=== PATIENT | female | born 1955 | race African-American/Black ===

== ENCOUNTER 2017-07-22 13:22 | Emergency (ER) | payer OTHER ==
[2017-07-22 15:39] LABS: #Eosinphils 0.2 thou/uL (0.0-0.7); #Lymphocytes 3.3 thou/uL (1.20-3.40); #Monocytes 0.6 thou/uL (0.11-0.59); #Neutrophils 3.5 thou/uL (1.40-6.50); %Basophils 0.3 % (0.0-1.0); %Eosinophils 2.7 % (0.0-10.0); %Lymphocytes 43.3 % (21.0-51.0); %Monocytes 8.1 % (0.0-10.0); %Neutrophils 45.6 % (42.0-75.0); Hemoglobin 12.7 g/dL (12.0-16.0); Mean Corpuscular HGB CONC 33.4 g/dL (32.0-36.0); Mean Corpuscular Hemoglobin 29.7 pg (27.0-31.0); Platelet Count 250 thou/uL (130-400); RBC Distribution Width 11.6 % (11.5-14.5); Red Blood Cell (RBC) Count 4.28 mill/uL (4.20-5.40); White Blood Cell (WBC) Count 7.6 thou/uL (4.8-10.8)
[2017-07-22 15:50] LABS: Prothrombin Time 13.7 SEC (12.0-14.7)
[2017-07-22 15:51] LABS: PTT 28.8 SEC (22.9-36.1)
--- NOTE | 2017-07-22 15:52 | CT ---
CT OF THE BRAIN WITHOUT CONTRAST: Date: 07/22/17 COMPARISON: 02/05/11. HISTORY: Left-sided weakness and inability to bear weight on the left leg since this morning. TECHNIQUE: Multiple contiguous axial images were obtained in a CT of the brain without contrast. FINDINGS: There is encephalomalacia in the right MCA distribution. There is a central area of volume loss encep halomalacia. In the white matter in the right MCA distribution, there is increased volume loss enceph alomalacia when compared to the prior examination. This may have represented evolution of the previou s MCA distribution infarction. An acute infarction in the right MCA distribution cannot be excluded g iven the significant encephalomalacia and hypodensity in this region. There is no evidence of hydroce phalus, intracranial hemorrhage, or extra-axial fluid collection. The calvarium and overlying soft tissues are unremarkable. Visualized paranasal sinuses and mastoid a ir cells are well aerated. IMPRESSION: The patient has a remote right MCA distribution infarction. An acute on chronic infarction in this lo cation cannot be entirely excluded given the significant encephalomalacia and hypodensity in this reg ion. POS: NATALIE
[2017-07-22 15:58] LABS: Digoxin Less than 0.15 ng/mL (0.8-2.0)
[2017-07-22 16:04] LABS: ALT (SGPT) 12 U/L (8-55); AST (SGOT) 21 U/L (5-34); Albumin 4.1 g/dL (3.4-4.8); Alkaline Phosphatase 106 U/L (40-150); Anion Gap 11 mmol/L (10-20); BUN (Urea Nitrogen) 7 mg/dL (9.8-20.1); Bilirubin, Total 0.5 mg/dL (0.2-1.2); CKMB 1.9 ng/mL (0-6.6); Calc. Creatinine Clearance 0 mL/min (70-130); Calcium 9.7 mg/dL (7.8-10.44); Carbon Dioxide 25 mmol/L (23-31); Chloride 106 mmol/L (98-107); Estimated GFR-MDRD 89; Globulin 3.2 g/dL (2.4-3.5); Glucose 82 mg/dL (80-115); Potassium 4.9 mmol/L (3.5-5.1); Protein, Total 7.3 g/dL (6.0-8.3); Sodium 137 mmol/L (136-145); Troponin I 0.017 ng/mL (< 0.028)
--- NOTE | 2017-07-22 16:36 | RAD ---
PORTABLE AP CHEST RADIOGRAPH: Date: 07-22-17 History: Left sided weakness and inability to bear weight on left lower extremity for past 2-3 days. Comparison: 07-15-10 FINDINGS: Post-surgical changes related to median sternotomy and cardiac valve replacement are again noted. Car diac silhouette is magnified by projection. Pulmonary vasculature is within normal limits. The lungs are clear. Degenerative change are seen in the spine. There has been no interval change from prior st udy. IMPRESSION: No acute cardiopulmonary process. POS: NATALIE
[2017-07-22] MEDS ORDERED: Enoxaparin Sodium 60 MG/0.6 ML SYRINGE ONE (18:19)
== END 2017-07-22 18:35 | disposition home or self-care (01) ==
LOC: ERS 13:22
DX: R53.1 Weakness (principal); J45.909 Unspecified asthma, uncomplicated; I10 Essential (primary) hypertension; E78.5 Hyperlipidemia, unspecified; Z87.891 Personal history of nicotine dependence; Z77.22 Contact with and (suspected) exposure to environmental tobacco smoke (acute) (chronic); Z79.01 Long term (current) use of anticoagulants; Z79.899 Other long term (current) drug therapy; Z86.73 Personal history of transient ischemic attack (TIA), and cerebral infarction without residual deficits
CPT/HCPCS: 70450; 71045; 80053; 80162; 80185; 82553; 84484; 85025; 85610; 85730; 93005; 96372; J1650

== ENCOUNTER 2017-09-04 22:37 | Inpatient (IN) | payer OTHER ==
[2017-09-05] MEDS ORDERED: Aspirin 325 MG TAB ONE (00:33)
[2017-09-05 02:35] VITALS: BMI 26.7
[2017-09-05] MEDS ORDERED: Acetaminophen 325 MG TAB PO SCH (02:45)
[2017-09-05] MEDS ORDERED: Milk Of Magnesia 30 ML UDCUP PO PRN (08:56)
[2017-09-05] MEDS ORDERED: Sodium Chloride 0.65% Nasal 44 ML BOT EA NARE PRN (08:56)
[2017-09-05] MEDS ORDERED: Artificial Tears 18 DROP/0.9 ML EA EYE PRN (08:56)
[2017-09-05] MEDS ORDERED: hydrALAZINE 20 MG/ML VIAL SLOW IVP PRN (08:56)
[2017-09-05] MEDS ORDERED: Ondansetron HCl/PF 4 MG/2 ML Vial IVP PRN (08:56)
[2017-09-05] MEDS ORDERED: Loperamide HCl 2 MG CAP PO PRN (08:56)
[2017-09-05] MEDS ORDERED: Diabetic Tussin 200 MG/10 ML UDCUP PO PRN (08:56)
[2017-09-05] MEDS ORDERED: Nitroglycerin 0.4 MG TAB (25 Tab Bottle) SL PRN (08:56)
[2017-09-05] MEDS ORDERED: Chloraseptic Spray 180 ml Bottle PO PRN (08:56)
[2017-09-05] MEDS ORDERED: Senokot 8.6 MG TAB PO PRN (08:56)
[2017-09-05] MEDS ORDERED: Eucerin (Mineral Oil/Petrolatum,White) 30 gm Jar TOP PRN (08:56)
[2017-09-05] MEDS ORDERED: Mag-Al 1200 mg/1200 mg/30 ML UDCUP PO PRN (08:56)
[2017-09-05] MEDS ORDERED: Loratadine 10 MG TAB PO PRN (08:56)
[2017-09-05] MEDS ORDERED: Ondansetron ODT 4 MG TAB PO PRN (08:56)
[2017-09-05] MEDS ORDERED: Aspirin 325 MG TAB PO SCH (09:00)
[2017-09-05 09:26] LABS: #Basophils 0.1 thou/uL (0.0-0.2); #Eosinphils 0.2 thou/uL (0.0-0.7); #Lymphocytes 3.8 thou/uL (1.20-3.40); #Monocytes 0.6 thou/uL (0.11-0.59); %Basophils 1.3 % (0.0-1.0); %Eosinophils 2.2 % (0.0-10.0); %Lymphocytes 49.4 % (21.0-51.0); %Monocytes 7.8 % (0.0-10.0); %Neutrophils 39.4 % (42.0-75.0); Hemoglobin 11.9 g/dL (12.0-16.0); Mean Corpuscular HGB CONC 34.6 g/dL (32.0-36.0); Mean Corpuscular Volume 89.7 fl (81.0-99.0); Mean Platelet Volume 6.9 fL (7.4-10.4); Platelet Count 231 thou/uL (130-400); RBC Distribution Width 11.9 % (11.5-14.5); Red Blood Cell (RBC) Count 3.83 mill/uL (4.20-5.40); White Blood Cell (WBC) Count 7.7 thou/uL (4.8-10.8)
[2017-09-05 09:42] LABS: INR-International Normal Ratio 1.1; Prothrombin Time 14.5 SEC (12.0-14.7)
[2017-09-05 09:49] LABS: ALT (SGPT) 7 U/L (8-55); AST (SGOT) 13 U/L (5-34); Albumin 3.6 g/dL (3.4-4.8); Alkaline Phosphatase 100 U/L (40-150); Anion Gap 9 mmol/L (10-20); BUN (Urea Nitrogen) 6 mg/dL (9.8-20.1); Bilirubin, Total 0.5 mg/dL (0.2-1.2); Calc. Creatinine Clearance 90 mL/min (70-130); Calcium 9.2 mg/dL (7.8-10.44); Carbon Dioxide 26 mmol/L (23-31); Chloride 109 mmol/L (98-107); Dilantin 2.5 ug/mL (10.0-20.0); Estimated GFR-MDRD Greater than 90; Globulin 2.6 g/dL (2.4-3.5); Glucose 91 mg/dL (80-115); Potassium 3.8 mmol/L (3.5-5.1); Protein, Total 6.2 g/dL (6.0-8.3); Sodium 140 mmol/L (136-145)
[2017-09-05 10:07] LABS: Syphilis Antibody Nonreactive (Nonreactive); Syphilis Antibody Index 0.07 S/CO (<1.00 Non-Reactive)
[2017-09-05] MEDS: Pregabalin 75 MG CAP PO SCH (10:33)
[2017-09-05] MEDS: Baclofen 10 MG TAB PO SCH (10:33)
[2017-09-05] MEDS: Lisinopril 20 MG TAB PO SCH (10:35)
[2017-09-05] MEDS: Famotidine 20 MG TAB PO SCH ×2 (10:35→20:40)
[2017-09-05] MEDS: Ezetimibe 10 MG TAB PO SCH (10:35)
[2017-09-05] MEDS: Digoxin 0.125 MG TAB PO SCH (10:35)
[2017-09-05] MEDS: Atorvastatin Calcium 20 MG TAB PO SCH (10:36)
[2017-09-05] MEDS: hydrOXYzine 25 MG TAB PO SCH (10:36)
[2017-09-05] MEDS: Aspirin 81 mg Enteric Coated Tablet PO SCH (10:37)
--- NOTE | 2017-09-05 11:01 | HP ---
PRIMARY CARE PHYSICIAN: Dr. Amari Casas in [place]. REASON FOR ADMISSION: Transfer from [facility] Emergency Room for CVA. HISTORY OF PRESENT ILLNESS: A 61-year-old -[place] female who has underlying history of mitr al valve replacement and she is on chronic anticoagulation therapy. Her INR was subtherapeutic today at 1.1 when they checked blood test at [place] [facility]. On background history, she has a his tory of CVA with left-sided weakness. She is able to ambulate with a cane and she is dragging her le ft side, but she did not have any problem on the right side. Last night, she was evaluated at [facility] Emergency Room and she was taken there. Tingling and numbness sensation on the right upper extremi ty and lower extremity which was started on the day of going to ER, the patient was not able to hold on her right side and that is why family member concerned about another stroke and was taken to [facility] Emergency Room where she had CT brain which was negative for any new process. Routine blood tests showed subtherapeutic INR. All other blood test was normal and subsequently this patient was sent t o our emergency room for higher level of care. This patient also has history of seizure disorder, but she did not have any seizures. She was not roberson ving any headache. She did not have any speech problem and dysphagia. She did not have any diplopia . Patient's reports that the patient is dealing with forgetfulness. She was having difficulty controlling her movement. She did not have any visual disturbance. REVIEW OF SYSTEMS: The following complete review of systems was negative, unless otherwise mentioned in the HPI or below: Constitutional: Weight loss or gain, ability to conduct usual activities. Skin: Rash, itching. Eyes: Double vision, pain. ENT/Mouth: Nose bleeding, neck stiffness, pain, tenderness. Cardiovascular: Palpitations, dyspnea on exertion, orthopnea. Respiratory: Shortness of breath, wheezing, cough, hemoptysis, fever or night sweats. Gastrointestinal: Poor appetite, abdominal pain, heartburn, nausea, vomiting, constipation, or diarr hea. Genitourinary: Urgency, frequency, dysuria, nocturia. Musculoskeletal: Pain, swelling. Neurologic/Psychiatric: Anxiety, depression. Allergy/Immunologic: Skin rash, bleeding tendency. Please see my HPI for pertinent positive and negative. All other review of systems reviewed and nega tive except as mentioned in the HPI. ALLERGIES: ERYTHROMYCIN BASE. CURRENT HOME MEDICATIONS: Aspirin 81 mg daily, Lipitor 20 mg p.o. daily, Baclofen 20 mg p.o. daily, digoxin 125 mcg p.o. daily, Zetia 10 mg p.o. daily, Atarax 25 mg p.o. daily, lisinopril 20 mg p.o. da jyotsna, Dilantin 30 mg p.o. t.i.d., potassium chloride 20 mEq p.o. daily, Lyrica 75 mg p.o. daily, and w arfarin 5 mg p.o. daily. PAST MEDICAL HISTORY: Coronary artery disease, congestive heart failure, seizure disorder, history o f stroke with left-sided weakness, asthma, hypertension, dyslipidemia, and neuropathy. PAST SURGICAL HISTORY: Mitral valve replacement, bilateral foot surgery, cholecystectomy, and hyster ectomy. PAST PSYCHIATRIC HISTORY: Reviewed and negative. SOCIAL HISTORY: Patient is and lives at home in [place]. She is a former smoker. She quit smoking few years ago. She has passive exposure to smoke. She does not have any alcohol or other il licit drug abuse. FAMILY HISTORY: No strong family history of premature coronary artery disease, stroke or cancer. EMERGENCY ROOM COURSE: Reviewed. The patient was given aspirin. PHYSICAL EXAMINATION: VITAL SIGNS: At [place] [facility], blood pressure 184/86, pulse 83, temperature 98.0, saturatio n 99% on room air, and weight 70.3 kilograms. GENERAL: The patient is currently alert, awake, arousable, follows command. No obvious acute distre ss. HEAD: Normocephalic, atraumatic. EYES: Pupils round, reactive to light. Extraocular muscle intact. No nystagmus. Conjunctivae norm al. ENT: Oropharynx within normal limits. Moist mucous membranes. No oral lesion. No pharyngeal eryth niranjan, no exudate. Uvula central. NECK: Supple, no JVD, no thyromegaly, no carotid bruit, no jugular venous distention. LUNGS: Clear to auscultation without any rhonchi or rales. CARDIAC: S1, S2 appears regular, prosthetic sounds click heard. No gross murmur noted, no gallop, n o rub. ABDOMEN: Soft, bowel sounds present, nontender, nondistended. No organomegaly, no mass, no suprapub ic tenderness. BACK: Examination unremarkable, no CVA tenderness. EXTREMITIES: Upper extremity passive movements of all joints are normal. Lower extremities: No avelino ma. Good peripheral pulsation. SKIN: No skin rash. HEMATOLOGICAL SYSTEM: No lymphadenopathy. NEUROLOGIC: Currently, patient has residual weakness on the left side. Right side, she is able to m ove, but coordination is abnormal. She does not have any gross pronator drift, plantar bilateral fle xor. Cerebellar sign is slightly abnormal. Reflexes symmetrical. PSYCHIATRIC: Normal affect. IMAGING DATA AND SIGNIFICANT LABORATORY DATA: 1. EKG showing normal sinus rhythm, nonspecific changes. 2. CBC: WBC 8.1, hemoglobin 12.0, platelet 261. 3. BMP: Sodium 141, potassium 3.9, chloride 110, carbon dioxide 27, BUN 6, creatinine 0.78, glucose 87. 4. LFT: Bilirubin 0.3, alkaline phosphatase is 108, AST 14, ALT 13, alkaline phosphatase 108, album in 3.7, PT/INR 1.1, troponin 0.06, ammonia 26, BNP 187, lactic acid 1.2, lipase 22. Alcohol less johnny n 10. Magnesium 2.1. Urinalysis normal. 5. CT brain, no acute intracranial process, generalized intracranial volume loss. Multiple areas of encephalomalacia. ASSESSMENT AND PLAN/IMPRESSION: 1. Right upper and lower extremity paraesthesia concerned about sensory stroke. CT brain is not magy wing any acute process. She does have previous history of CVA. At this point, we will do MRI brain, carotid Doppler and echocardiography. We will continue to treat her condition with aspirin 81 mg p. o. daily. We will monitor PT/INR and also resume warfarin 5 mg p.o. daily. We will continue Lipitor 20 mg p.o. daily and Zetia 10 mg p.o. daily. We will also continue lisinopril 20 mg p.o. daily. PT, OT and Neurology will be consulted. Based on investigation, we will decide next step. 2. Chronic congestive heart failure. Currently, patient is euvolemic likely related with her previo us valvular heart disease. Her BNP is also normal. 3. Coronary artery disease. We will continue aspirin 81 mg p.o. daily, Lipitor 20 mg p.o. daily, li sinopril 20 mg p.o. daily. The patient currently does not have any angina. 4. History of cerebrovascular accident with residual weakness on the left side. Continue baclofen 2 0 mg p.o. daily. 5. Dyslipidemia. Continue Lipitor 20 mg p.o. daily, Zetia 10 mg p.o. daily and check lipid profile tomorrow. 6. Seizure disorder from previous CVA. Continue Dilantin 30 mg p.o. t.i.d. and check Dilantin level . 7. History of mitral valve replacement, on chronic anticoagulation with warfarin. Currently, INR is subtherapeutic. We will continue warfarin 5 mg p.o. daily. We will monitor PT/INR daily and adjust warfarin dose. 8. Deep venous thrombosis prophylaxis. Patient is already on warfarin therapy. 9. Gastrointestinal prophylaxis. Pepcid 20 mg p.o. b.i.d. 10. Code status: The patient is FULL CODE. Patient's is surrogate decision maker. Disposition plan based on clinical course. We are expecting patient's stay in hospital more than 2 m idnights. She may need rehabilitation depending upon clinical course.
--- NOTE | 2017-09-05 11:26 | MRI ---
BRAIN MRI NONCONTRAST: INDICATIONS: TIA. FINDINGS: There is a significant degree of cavitary encephalomalacia occupying the majority of the right cerebr al hemisphere. Moderate global atrophy is present. There are multifocal remote lacunar infarctions of each cerebellar hemisphere. There is a superimposed acute inferomedial left cerebellar hemispheri c lacunar infarction. No significant parenchymal hemorrhage. There is a moderate sized region of acute ischemia demonstrated within the posterior division left MC A territory. There is circumferential mucosal thickening of the left maxillary sinus. IMPRESSION: 1. Moderate sized acute posterior division left middle cerebral artery territory infarction. 2. Extensive encephalomalacia and chronic ischemic disease. 3. There are multifocal lacunar infarctions of the cerebellum bilaterally, including an acute left p osterior inferior cerebral artery distribution infarction. POS: NATALIE
[2017-09-05] MEDS: Acetaminophen 325 MG TAB PO PRN (13:40)
--- NOTE | 2017-09-05 14:36 | ULT ---
CAROTID ULTRASOUND WITH HICKS SCALE AND DOPPLER DUPLEX COLOR FLOW IMAGING SPECTRAL ANALYSIS PERFORMED: DATE: 09/05/17 CLINICAL INDICATION: TIA, CVA. FINDINGS: There is scattered intimal thickening/mild atherosclerotic plaque formation. PEAK SYSTOLIC VELOCITY (CM/S): Right CCA 61 Left CCA 71 Right ICA 48 Left ICA 48 There is antegrade flow within the visualized bilateral vertebral arteries. Incidental note of heterogeneity of the partially imaged thyroid gland indicative of thyroid nodules, incomplete evaluated. IMPRESSION: 1. No hemodynamically significant stenosis of the right internal carotid artery. 2. No hemodynamically significant stenosis of the left internal carotid artery. 3. Evidence of partially imaged thyroid nodules. Recommend follow-up with thyroid ultrasound to furt her characterize. POS: NATALIE
[2017-09-05] MEDS ORDERED: Phenytoin Sodium Extended [Dilantin] 30 MG PO SCH (15:00)
[2017-09-05] MEDS: Warfarin Sodium 5 MG TAB PO SCH (16:49)
--- NOTE | 2017-09-05 16:52 | CON ---
DATE OF CONSULTATION: 09/05/2017 CONSULTING PHYSICIAN: Hospitalist Service. IMPRESSION: 1. Embolic stroke involving the left PICA and left posterior middle cerebral artery territory with r esolving deficits. 2. Subtherapeutic Coumadin level. PLAN: 1. Normalize her Coumadin INR of 2-3. 2. Physical therapy evaluation. HISTORY OF PRESENT ILLNESS: Ms. Dow is a 61-year-old black female with a known history of aortic v alve replacement on anticoagulation. She had a prior stroke which previously involved some weakness on the left side. She developed some new onset of weakness and numbness on the right side and came t o the [facility] for evaluation. A carotid ultrasound was unremarkable. Her MRI revealed 2 acute area s of infarction, one involving the vertebral distribution and the other involving the left MCA. She reports her right-sided symptoms have improved. She is not having any trouble with swallowing or spe ech. She is not noticing any change in her vision, headache, vertigo, chest pain or shortness of tree ath. Daughter reports that she has been quite lethargic all day and spent most of the day sleeping. PAST MEDICAL HISTORY: As listed above. ALLERGIES: DILANTIN and ERYTHROMYCIN. FAMILY HISTORY: Noncontributory. MEDICATION LIST: Reviewed. SOCIAL HISTORY: Unremarkable. REVIEW OF SYSTEMS: Past history of seizures. PHYSICAL EXAMINATION: GENERAL: She is a well-nourished middle-aged woman in no distress. HEENT: Her eyes are a bit proptotic, but otherwise unremarkable. NECK: Supple. EXTREMITIES: No cyanosis, clubbing or edema. NEUROLOGIC: She is a bit lethargic and had a little trouble paying attention throughout the exam. H er speech is fluent and clear. She followed most commands reasonably well. Cranial nerve exam was u nremarkable other than some diminished visual acuity. Motor exam showed symmetric strength. There w as no obvious tremor or dysmetria. Sensation was subjectively equal. Gait was not tested. Plantar responses were downgoing. IMAGING DATA: EKG shows sinus rhythm with PACs. SUMMARY: Middle-aged woman with subtherapeutic anticoagulation levels who had a subsequent embolic e vent. She seems to be improving. Continue with her prior therapy.
[2017-09-05] MEDS: Enoxaparin Sodium 60 MG/0.6 ML SYRINGE SC SCH (20:39)
[2017-09-06 05:31] LABS: INR-International Normal Ratio 1.1; Prothrombin Time 14.8 SEC (12.0-14.7)
[2017-09-06] MEDS: Enoxaparin Sodium 60 MG/0.6 ML SYRINGE SC SCH ×2 (08:35→20:31)
[2017-09-06] MEDS: Baclofen 10 MG TAB PO SCH (10:55)
[2017-09-06] MEDS: Ezetimibe 10 MG TAB PO SCH (10:56)
[2017-09-06] MEDS: Potassium Chloride 20 MEQ TAB PO SCH (10:56)
[2017-09-06] MEDS: Lisinopril 20 MG TAB PO SCH (10:56)
[2017-09-06] MEDS: Famotidine 20 MG TAB PO SCH ×2 (10:56→20:31)
[2017-09-06] MEDS: Atorvastatin Calcium 20 MG TAB PO SCH (10:57)
[2017-09-06] MEDS: Digoxin 0.125 MG TAB PO SCH (10:57)
[2017-09-06] MEDS: Aspirin 81 mg Enteric Coated Tablet PO SCH (10:57)
[2017-09-06] MEDS: hydrOXYzine 25 MG TAB PO SCH (10:57)
[2017-09-06] MEDS: Pregabalin 75 MG CAP PO SCH (10:58)
--- NOTE | 2017-09-06 11:46 | PDOC.PN ---
- Subjective Encounter Start Date: 09/06/17 Encounter Start Time: 07:00 -: old records requested/rev Patient seen and examined for CVA. No new complaints. Noted overnight events - Objective Resuscitation Status: Resuscitation Status FULL:Full Resuscitation MAR Reviewed: Yes Vital Signs & Weight: Vital Signs (12 hours) Temp Pulse Resp BP BP Pulse Ox 09/06/17 10:57 53 L 09/06/17 10:56 163/73 H 09/06/17 08:00 97.2 F L 53 L 18 09/06/17 07:34 97.2 F L 53 L 18 156/76 H 99 09/06/17 04:34 98.1 F 54 L 18 140/60 98 09/05/17 23:45 98.2 F 54 L 16 151/75 H 98 Weight Weight 156 lb I&O: 09/05/17 09/06/17 09/07/17 06:59 06:59 06:59 Intake Total 550 Output Total 400 Balance 150 Result Diagrams: 09/05/17 09:14 09/05/17 09:14 Radiology Reviewed by me: Yes (MRI, carotid US) EKG Reviewed by me: Yes Phys Exam - Physical Examination Constitutional: NAD HEENT: PERRLA, moist MMs, sclera anicteric Neck: no JVD, supple Respiratory: no wheezing, no rales, no rhonchi Cardiovascular: no significant murmur, no rub prosthetic sound+ Gastrointestinal: soft, non-tender, no distention, positive bowel sounds Musculoskeletal: no edema, pulses present left side residual weakness, right side mild weakness Lymphatic: no nodes Psychiatric: normal affect Skin: no rash, normal turgor Dx/Plan (1) Left acute arterial ischemic stroke, MCA (middle cerebral artery) Code(s): I63.512 - CEREB INFRC D/T UNSP OCCLS OR STENOS OF LEFT MID CEREB ART Status: Acute Comment: suspecting embolic (2) Subtherapeutic international normalized ratio (INR) Code(s): R79.1 - ABNORMAL COAGULATION PROFILE Status: Acute (3) CVA, old, hemiparesis Code(s): I69.359 - HEMIPLGA FOLLOWING CEREBRAL INFARCTION AFFECTING UNSP SIDE Status: Chronic (4) Chronic combined systolic and diastolic CHF, NYHA class 2 and ELIAZAR/AHA stage C Code(s): I50.42 - CHRONIC COMBINED SYSTOLIC AND DIASTOLIC HRT FAIL Status: Chronic (5) Dyslipidemia Code(s): E78.5 - HYPERLIPIDEMIA, UNSPECIFIED Status: Chronic (6) H/O mitral valve replacement with mechanical valve Code(s): Z95.2 - PRESENCE OF PROSTHETIC HEART VALVE Status: Chronic (7) Hypertension Code(s): I10 - ESSENTIAL (PRIMARY) HYPERTENSION Status: Chronic (8) Moderate aortic regurgitation Code(s): I35.1 - NONRHEUMATIC AORTIC (VALVE) INSUFFICIENCY Status: Chronic (9) Moderate tricuspid regurgitation Code(s): I07.1 - RHEUMATIC TRICUSPID INSUFFICIENCY Status: Chronic (10) Peripheral neuropathy Code(s): G62.9 - POLYNEUROPATHY, UNSPECIFIED Status: Chronic (11) Seizure disorder Code(s): G40.909 - EPILEPSY, UNSP, NOT INTRACTABLE, WITHOUT STATUS EPILEPTICUS Status: Chronic (12) Vascular dementia Code(s): F01.50 - VASCULAR DEMENTIA WITHOUT BEHAVIORAL DISTURBANCE Status: Chronic - Plan cont current plan of care, PT/OT, hospice social worker * her INR still subtherapeutic, so she will need to be on lovenox and warfarin until INR therapeutic * her dilantin level is low, so will give loading dose today and change dilantin 100 mg po tid * recheck dilantin level tomorrow * continue stroke team evaluation * she will need rehab vs snu placement on discharge * medication reviewed as below * symptomatic treatment. Review of Systems - Review of Systems Eyes: negative: Pain, Vision Change, Conjunctivae Inflammation, Eyelid Inflammation, Redness, Other ENT: negative: Ear Pain, Ear Discharge, Nose Pain, Nose Discharge, Nose Congestion, Mouth Pain, Mouth Swelling, Throat Pain, Throat Swelling, Other Respiratory: negative: Cough, Dry, Shortness of Breath, Hemoptysis, SOB with Excertion, Pleuritic Pain, Sputum, Wheezing Cardiovascular: negative: chest pain, palpitations, orthopnea, paroxysmal nocturnal dyspnea, edema, light headedness, other Gastrointestinal: negative: Nausea, Vomiting, Abdominal Pain, Diarrhea, Constipation, Melena, Hematochezia, Other Genitourinary: negative: Dysuria, Frequency, Incontinence, Hematuria, Retention , Other Musculoskeletal: negative: Neck Pain, Shoulder Pain, Arm Pain, Back Pain, Hand Pain, Leg Pain, Foot Pain, Other Skin: negative: Rash, Lesions, Favian, Bruising, Other - Medications/Allergies Allergies/Adverse Reactions: Allergies Allergy/AdvReac Type Severity Reaction Status Date / Time erythromycin base Allergy Verified 09/05/17 02:39 Medications: Current Medications Acetaminophen (Tylenol) 650 mg PO Q4H PRN PRN Reason: Headache/Fever or Pain Last Admin: 09/05/17 13:40 Dose: 650 mg Hydrocodone Bitart/Acetaminophen (Pearl 5/325) 1 tab PO Q4H PRN PRN Reason: Moderate Pain (4-6) Al Hydroxide/Mg Hydroxide (Maalox) 30 ml PO Q6H PRN PRN Reason: Heartburn or Indigestion Artificial Tears (Tears Naturale) 0 drop EA EYE PRN PRN PRN Reason: Dry Eyes Aspirin (Ecotrin) 81 mg PO DAILY PENDING SALE TO [facility] Last Admin: 09/06/17 10:57 Dose: 81 mg Atorvastatin Calcium (Lipitor) 20 mg PO DAILY PENDING SALE TO [facility] Last Admin: 09/06/17 10:57 Dose: 20 mg Baclofen (Lioresal) 20 mg PO DAILY PENDING SALE TO [facility] Last Admin: 09/06/17 10:55 Dose: 20 mg Digoxin (Lanoxin) 0.125 mg PO DAILY PENDING SALE TO [facility] Last Admin: 09/06/17 10:57 Dose: 0.125 mg Ezetimibe (Zetia) 10 mg PO DAILY PENDING SALE TO [facility] Last Admin: 09/06/17 10:56 Dose: 10 mg Enoxaparin Sodium (Lovenox) 60 mg SC 0900,2100 PENDING SALE TO [facility] Last Admin: 09/06/17 08:35 Dose: 60 mg Famotidine (Pepcid) 20 mg PO BID PENDING SALE TO [facility] Last Admin: 09/06/17 10:56 Dose: 20 mg Guaifenesin (Robitussin Sf) 200 mg PO Q4H PRN PRN Reason: Cough Hydralazine HCl (Apresoline) 10 mg SLOW IVP Q4H PRN PRN Reason: Systolic BP > 180 Hydroxyzine HCl (Atarax) 25 mg PO DAILY PENDING SALE TO [facility] Last Admin: 09/06/17 10:57 Dose: 25 mg Fosphenytoin Sodium 1,000 mg/ (Sodium Chloride) 70 mls @ 100 mls/hr IVPB NOW PENDING SALE TO [facility] Stop: 09/06/17 13:00 Last Admin: 09/06/17 11:37 Dose: 70 mls Lisinopril (Zestril) 20 mg PO DAILY PENDING SALE TO [facility] Last Admin: 09/06/17 10:56 Dose: 20 mg Loperamide HCl (Imodium) 2 mg PO PRN PRN PRN Reason: Diarrhea/Loose Stools Loratadine (Claritin) 10 mg PO DAILYPRN PRN PRN Reason: Sinus Symptoms Magnesium Hydroxide (Milk Of Magnesium) 30 ml PO DAILYPRN PRN PRN Reason: Constipation Mineral Oil/White Petrolatum (Eucerin Cream) 0 gm TOP BIDPRN PRN PRN Reason: Dry Skin Nitroglycerin (Nitrostat) 0.4 mg SL Q5MIN PRN PRN Reason: Chest Pain Ondansetron HCl (Zofran Odt) 4 mg PO Q6H PRN PRN Reason: Nausea/Vomiting Ondansetron HCl (Zofran) 4 mg IVP Q6H PRN PRN Reason: Nausea/Vomiting Phenol (Chloraseptic [place] 180 Ml Bot) 0 ml PO PRN PRN PRN Reason: Sore Throat Phenytoin Sodium (Dilantin Er) 100 mg PO TID PENDING SALE TO [facility] Potassium Chloride (K-Dur) 20 meq PO QAM-WM PENDING SALE TO [facility] Last Admin: 09/06/17 10:56 Dose: 20 meq Pregabalin (Lyrica) 75 mg PO DAILY PENDING SALE TO [facility] Last Admin: 09/06/17 10:58 Dose: 75 mg Senna (Senokot) 2 tab PO HSPRN PRN PRN Reason: Constipation Sodium Chloride ([place] Nasal [place] 0.65%) 0 ml EA NARE QIDPRN PRN PRN Reason: Nasal Congestion Warfarin Sodium (Coumadin) 5 mg PO 1700 PENDING SALE TO [facility] Last Admin: 09/05/17 16:49 Dose: 5 mg
[2017-09-06] MEDS: Acetaminophen 325 MG TAB PO PRN (12:43)
[2017-09-06] MEDS: Warfarin Sodium 5 MG TAB PO SCH (16:22)
[2017-09-07 08:13] LABS: INR-International Normal Ratio 1.2; Prothrombin Time 15.2 SEC (12.0-14.7)
[2017-09-07] MEDS: Baclofen 10 MG TAB PO SCH (08:43)
[2017-09-07] MEDS: Aspirin 81 mg Enteric Coated Tablet PO SCH (08:43)
[2017-09-07] MEDS: Potassium Chloride 20 MEQ TAB PO SCH (08:43)
[2017-09-07] MEDS: Digoxin 0.125 MG TAB PO SCH (08:44)
[2017-09-07] MEDS: Lisinopril 20 MG TAB PO SCH (08:44)
[2017-09-07] MEDS: Ezetimibe 10 MG TAB PO SCH (08:44)
[2017-09-07] MEDS: hydrOXYzine 25 MG TAB PO SCH (08:44)
[2017-09-07] MEDS: Pregabalin 75 MG CAP PO SCH (08:45)
[2017-09-07] MEDS: Atorvastatin Calcium 20 MG TAB PO SCH (08:45)
[2017-09-07] MEDS: Famotidine 20 MG TAB PO SCH ×2 (08:45→20:52)
[2017-09-07] MEDS: Enoxaparin Sodium 60 MG/0.6 ML SYRINGE SC SCH ×2 (08:45→20:52)
--- NOTE | 2017-09-07 09:41 | PDOC.PN ---
- Subjective Encounter Start Date: 09/07/17 Encounter Start Time: 07:10 Patient seen and examined for CVA. No new complaints. No overnight events - Objective Resuscitation Status: Resuscitation Status FULL:Full Resuscitation MAR Reviewed: Yes Vital Signs & Weight: Vital Signs (12 hours) Temp Pulse Resp BP BP Pulse Ox 09/07/17 08:44 53 L 175/76 H 09/07/17 07:59 98.2 F 53 L 18 175/76 H 99 09/07/17 04:00 98.5 F 54 L 16 136/55 L 94 L 09/07/17 00:00 98.4 F 57 L 16 148/62 H 97 Weight Weight 156 lb I&O: 09/06/17 09/07/17 09/08/17 06:59 06:59 06:59 Intake Total 550 480 Output Total 400 500 Balance 150 -20 Result Diagrams: 09/05/17 09:14 09/05/17 09:14 EKG Reviewed by me: Yes Phys Exam - Physical Examination Constitutional: NAD HEENT: PERRLA, moist MMs, sclera anicteric Neck: no JVD, supple Respiratory: no wheezing, no rales, no rhonchi Cardiovascular: no rub prosthetic heart sound+ Gastrointestinal: soft, non-tender, no distention, positive bowel sounds Musculoskeletal: no edema, pulses present Neurological: moves all 4 limbs Lymphatic: no nodes Psychiatric: normal affect Skin: no rash, normal turgor Dx/Plan (1) Left acute arterial ischemic stroke, MCA (middle cerebral artery) Code(s): I63.512 - CEREB INFRC D/T UNSP OCCLS OR STENOS OF LEFT MID CEREB ART Status: Acute Comment: suspecting embolic (2) Subtherapeutic international normalized ratio (INR) Code(s): R79.1 - ABNORMAL COAGULATION PROFILE Status: Acute (3) CVA, old, hemiparesis Code(s): I69.359 - HEMIPLGA FOLLOWING CEREBRAL INFARCTION AFFECTING UNSP SIDE Status: Chronic (4) Chronic combined systolic and diastolic CHF, NYHA class 2 and ELIAZAR/AHA stage C Code(s): I50.42 - CHRONIC COMBINED SYSTOLIC AND DIASTOLIC HRT FAIL Status: Chronic (5) Dyslipidemia Code(s): E78.5 - HYPERLIPIDEMIA, UNSPECIFIED Status: Chronic (6) H/O mitral valve replacement with mechanical valve Code(s): Z95.2 - PRESENCE OF PROSTHETIC HEART VALVE Status: Chronic (7) Hypertension Code(s): I10 - ESSENTIAL (PRIMARY) HYPERTENSION Status: Chronic (8) Moderate aortic regurgitation Code(s): I35.1 - NONRHEUMATIC AORTIC (VALVE) INSUFFICIENCY Status: Chronic (9) Moderate tricuspid regurgitation Code(s): I07.1 - RHEUMATIC TRICUSPID INSUFFICIENCY Status: Chronic (10) Peripheral neuropathy Code(s): G62.9 - POLYNEUROPATHY, UNSPECIFIED Status: Chronic (11) Seizure disorder Code(s): G40.909 - EPILEPSY, UNSP, NOT INTRACTABLE, WITHOUT STATUS EPILEPTICUS Status: Chronic (12) Vascular dementia Code(s): F01.50 - VASCULAR DEMENTIA WITHOUT BEHAVIORAL DISTURBANCE Status: Chronic - Plan cont current plan of care, plan discussed w/ family, PT/OT, social service coordinator * dilantin level is now therapeutic * increase warfarin 7.5 mg po daily * waiting INR to be therapeutic * medication reviewed as below * symptomatic treatment * discussed with daughter bedside Review of Systems - Review of Systems Eyes: negative: Pain, Vision Change, Conjunctivae Inflammation, Eyelid Inflammation, Redness, Other ENT: negative: Ear Pain, Ear Discharge, Nose Pain, Nose Discharge, Nose Congestion, Mouth Pain, Mouth Swelling, Throat Pain, Throat Swelling, Other Respiratory: negative: Cough, Dry, Shortness of Breath, Hemoptysis, SOB with Excertion, Pleuritic Pain, Sputum, Wheezing Cardiovascular: negative: chest pain, palpitations, orthopnea, paroxysmal nocturnal dyspnea, edema, light headedness, other Gastrointestinal: negative: Nausea, Vomiting, Abdominal Pain, Diarrhea, Constipation, Melena, Hematochezia, Other Genitourinary: negative: Dysuria, Frequency, Incontinence, Hematuria, Retention , Other Musculoskeletal: negative: Neck Pain, Shoulder Pain, Arm Pain, Back Pain, Hand Pain, Leg Pain, Foot Pain, Other - Medications/Allergies Allergies/Adverse Reactions: Allergies Allergy/AdvReac Type Severity Reaction Status Date / Time erythromycin base Allergy Verified 09/05/17 02:39 Medications: Current Medications Acetaminophen (Tylenol) 650 mg PO Q4H PRN PRN Reason: Headache/Fever or Pain Last Admin: 09/06/17 12:43 Dose: 650 mg Hydrocodone Bitart/Acetaminophen ([place] 5/325) 1 tab PO Q4H PRN PRN Reason: Moderate Pain (4-6) Al Hydroxide/Mg Hydroxide (Maalox) 30 ml PO Q6H PRN PRN Reason: Heartburn or Indigestion Artificial Tears (Tears Naturale) 0 drop EA EYE PRN PRN PRN Reason: Dry Eyes Aspirin (Ecotrin) 81 mg PO DAILY [facility] Last Admin: 09/07/17 08:43 Dose: 81 mg Atorvastatin Calcium (Lipitor) 20 mg PO DAILY [facility] Last Admin: 09/07/17 08:45 Dose: 20 mg Baclofen (Lioresal) 20 mg PO DAILY [facility] Last Admin: 09/07/17 08:43 Dose: 20 mg Digoxin (Lanoxin) 0.125 mg PO DAILY [facility] Last Admin: 09/07/17 08:44 Dose: 0.125 mg Ezetimibe (Zetia) 10 mg PO DAILY [facility] Last Admin: 09/07/17 08:44 Dose: 10 mg Enoxaparin Sodium (Lovenox) 60 mg SC 0900,2100 [facility] Last Admin: 09/07/17 08:45 Dose: 60 mg Famotidine (Pepcid) 20 mg PO BID [facility] Last Admin: 09/07/17 08:45 Dose: 20 mg Guaifenesin (Robitussin Sf) 200 mg PO Q4H PRN PRN Reason: Cough Hydralazine HCl (Apresoline) 10 mg SLOW IVP Q4H PRN PRN Reason: Systolic BP > 180 Hydroxyzine HCl (Atarax) 25 mg PO DAILY [facility] Last Admin: 09/07/17 08:44 Dose: 25 mg Lisinopril (Zestril) 20 mg PO DAILY [facility] Last Admin: 09/07/17 08:44 Dose: 20 mg Loperamide HCl (Imodium) 2 mg PO PRN PRN PRN Reason: Diarrhea/Loose Stools Loratadine (Claritin) 10 mg PO DAILYPRN PRN PRN Reason: Sinus Symptoms Magnesium Hydroxide (Milk Of Magnesium) 30 ml PO DAILYPRN PRN PRN Reason: Constipation Mineral Oil/White Petrolatum (Eucerin Cream) 0 gm TOP BIDPRN PRN PRN Reason: Dry Skin Nitroglycerin (Nitrostat) 0.4 mg SL Q5MIN PRN PRN Reason: Chest Pain Ondansetron HCl (Zofran Odt) 4 mg PO Q6H PRN PRN Reason: Nausea/Vomiting Ondansetron HCl (Zofran) 4 mg IVP Q6H PRN PRN Reason: Nausea/Vomiting Phenol (Chloraseptic [place] 180 Ml Bot) 0 ml PO PRN PRN PRN Reason: Sore Throat Phenytoin Sodium (Dilantin Er) 100 mg PO TID [facility] Last Admin: 09/07/17 08:43 Dose: 100 mg Potassium Chloride (K-Dur) 20 meq PO QAM-WM [facility] Last Admin: 09/07/17 08:43 Dose: 20 meq Pregabalin (Lyrica) 75 mg PO DAILY [facility] Last Admin: 09/07/17 08:45 Dose: 75 mg Senna (Senokot) 2 tab PO HSPRN PRN PRN Reason: Constipation Sodium Chloride ([place] Nasal [place] 0.65%) 0 ml EA NARE QIDPRN PRN PRN Reason: Nasal Congestion Sodium Chloride (Flush - Normal Saline) 10 ml IVF Q12HR ZUHAIR Sodium Chloride (Flush - Normal Saline) 10 ml IVF PRN PRN PRN Reason: Saline Flush Warfarin Sodium (Coumadin) 7.5 mg PO 1700 [facility]
[2017-09-07] MEDS: Warfarin Sodium 7.5 MG TAB PO SCH (16:00)
[2017-09-08] MEDS: Acetaminophen 325 MG TAB PO PRN ×2 (03:58→09:24)
[2017-09-08 05:34] LABS: INR-International Normal Ratio 1.4; Prothrombin Time 17.2 SEC (12.0-14.7)
[2017-09-08] MEDS: Digoxin 0.125 MG TAB PO SCH (09:20)
[2017-09-08] MEDS: Enoxaparin Sodium 60 MG/0.6 ML SYRINGE SC SCH ×2 (09:20→20:47)
[2017-09-08] MEDS: hydrOXYzine 25 MG TAB PO SCH (09:20)
[2017-09-08] MEDS: Famotidine 20 MG TAB PO SCH ×2 (09:20→20:48)
[2017-09-08] MEDS: Potassium Chloride 20 MEQ TAB PO SCH (09:20)
[2017-09-08] MEDS: Ezetimibe 10 MG TAB PO SCH (09:20)
[2017-09-08] MEDS: Aspirin 81 mg Enteric Coated Tablet PO SCH (09:20)
[2017-09-08] MEDS: Atorvastatin Calcium 20 MG TAB PO SCH (09:20)
[2017-09-08] MEDS: Baclofen 10 MG TAB PO SCH (09:20)
[2017-09-08] MEDS: Pregabalin 75 MG CAP PO SCH (09:21)
[2017-09-08] MEDS: Lisinopril 20 MG TAB PO SCH (09:21)
--- NOTE | 2017-09-08 10:30 | PDOC.PN ---
- Subjective Encounter Start Date: 09/08/17 Encounter Start Time: 07:40 Patient seen and examined cva. No new complaints. No overnight events - Objective Resuscitation Status: Resuscitation Status FULL:Full Resuscitation MAR Reviewed: Yes Vital Signs & Weight: Vital Signs (12 hours) Temp Pulse Resp BP BP Pulse Ox 09/08/17 09:21 148/67 H 09/08/17 09:20 62 09/08/17 08:11 98.1 F 62 18 148/67 H 100 09/08/17 07:50 98.1 F 62 18 99 09/08/17 03:52 98.4 F 64 14 155/68 H 95 09/08/17 01:16 166/66 H 09/08/17 00:30 98.8 F 66 16 182/81 H 94 L 09/07/17 23:44 63 Weight Weight 156 lb I&O: 09/07/17 09/08/17 09/09/17 06:59 06:59 06:59 Intake Total 480 845 300 Output Total 500 Balance -20 845 300 Result Diagrams: 09/05/17 09:14 09/05/17 09:14 EKG Reviewed by me: Yes Phys Exam - Physical Examination Constitutional: NAD HEENT: PERRLA, moist MMs, sclera anicteric Neck: no JVD, supple Respiratory: no wheezing, no rales, no rhonchi prosthetic sound+ Gastrointestinal: soft, non-tender, no distention, positive bowel sounds Musculoskeletal: no edema, pulses present Neurological: moves all 4 limbs Lymphatic: no nodes Skin: no rash, normal turgor Dx/Plan (1) Left acute arterial ischemic stroke, MCA (middle cerebral artery) Code(s): I63.512 - CEREB INFRC D/T UNSP OCCLS OR STENOS OF LEFT MID CEREB ART Status: Acute Comment: suspecting embolic (2) Subtherapeutic international normalized ratio (INR) Code(s): R79.1 - ABNORMAL COAGULATION PROFILE Status: Acute (3) CVA, old, hemiparesis Code(s): I69.359 - HEMIPLGA FOLLOWING CEREBRAL INFARCTION AFFECTING UNSP SIDE Status: Chronic (4) Chronic combined systolic and diastolic CHF, NYHA class 2 and ELIAZAR/AHA stage C Code(s): I50.42 - CHRONIC COMBINED SYSTOLIC AND DIASTOLIC HRT FAIL Status: Chronic (5) Dyslipidemia Code(s): E78.5 - HYPERLIPIDEMIA, UNSPECIFIED Status: Chronic (6) H/O mitral valve replacement with mechanical valve Code(s): Z95.2 - PRESENCE OF PROSTHETIC HEART VALVE Status: Chronic (7) Hypertension Code(s): I10 - ESSENTIAL (PRIMARY) HYPERTENSION Status: Chronic (8) Moderate aortic regurgitation Code(s): I35.1 - NONRHEUMATIC AORTIC (VALVE) INSUFFICIENCY Status: Chronic (9) Moderate tricuspid regurgitation Code(s): I07.1 - RHEUMATIC TRICUSPID INSUFFICIENCY Status: Chronic (10) Peripheral neuropathy Code(s): G62.9 - POLYNEUROPATHY, UNSPECIFIED Status: Chronic (11) Seizure disorder Code(s): G40.909 - EPILEPSY, UNSP, NOT INTRACTABLE, WITHOUT STATUS EPILEPTICUS Status: Chronic (12) Vascular dementia Code(s): F01.50 - VASCULAR DEMENTIA WITHOUT BEHAVIORAL DISTURBANCE Status: Chronic - Plan cont current plan of care, plan discussed w/ family, PT/OT, social media content manager * medication reviewed as below * symptomatic treatment * continue lovenox and warfarin. * will repeat labs tomorrow * expecting discharge tomorrow to rehab Review of Systems - Review of Systems Eyes: negative: Pain, Vision Change, Conjunctivae Inflammation, Eyelid Inflammation, Redness, Other ENT: negative: Ear Pain, Ear Discharge, Nose Pain, Nose Discharge, Nose Congestion, Mouth Pain, Mouth Swelling, Throat Pain, Throat Swelling, Other Respiratory: negative: Cough, Dry, Shortness of Breath, Hemoptysis, SOB with Excertion, Pleuritic Pain, Sputum, Wheezing Cardiovascular: negative: chest pain, palpitations, orthopnea, paroxysmal nocturnal dyspnea, edema, light headedness, other Gastrointestinal: negative: Nausea, Vomiting, Abdominal Pain, Diarrhea, Constipation, Melena, Hematochezia, Other Genitourinary: negative: Dysuria, Frequency, Incontinence, Hematuria, Retention , Other Musculoskeletal: negative: Neck Pain, Shoulder Pain, Arm Pain, Back Pain, Hand Pain, Leg Pain, Foot Pain, Other - Medications/Allergies Allergies/Adverse Reactions: Allergies Allergy/AdvReac Type Severity Reaction Status Date / Time erythromycin base Allergy Verified 09/05/17 02:39 Medications: Current Medications Acetaminophen (Tylenol) 650 mg PO Q4H PRN PRN Reason: Headache/Fever or Pain Last Admin: 09/08/17 09:24 Dose: 650 mg Hydrocodone Bitart/Acetaminophen ([place] 5/325) 1 tab PO Q4H PRN PRN Reason: Moderate Pain (4-6) Al Hydroxide/Mg Hydroxide (Maalox) 30 ml PO Q6H PRN PRN Reason: Heartburn or Indigestion Artificial Tears (Tears Naturale) 0 drop EA EYE PRN PRN PRN Reason: Dry Eyes Aspirin (Ecotrin) 81 mg PO DAILY [facility] Last Admin: 09/08/17 09:20 Dose: 81 mg Atorvastatin Calcium (Lipitor) 20 mg PO DAILY [facility] Last Admin: 09/08/17 09:20 Dose: 20 mg Baclofen (Lioresal) 20 mg PO DAILY [facility] Last Admin: 09/08/17 09:20 Dose: 20 mg Digoxin (Lanoxin) 0.125 mg PO DAILY [facility] Last Admin: 09/08/17 09:20 Dose: 0.125 mg Ezetimibe (Zetia) 10 mg PO DAILY [facility] Last Admin: 09/08/17 09:20 Dose: 10 mg Enoxaparin Sodium (Lovenox) 60 mg SC 0900,2100 [facility] Last Admin: 09/08/17 09:20 Dose: 60 mg Famotidine (Pepcid) 20 mg PO BID [facility] Last Admin: 09/08/17 09:20 Dose: 20 mg Guaifenesin (Robitussin Sf) 200 mg PO Q4H PRN PRN Reason: Cough Hydralazine HCl (Apresoline) 10 mg SLOW IVP Q4H PRN PRN Reason: Systolic BP > 180 Last Admin: 09/07/17 23:44 Dose: 10 mg Hydroxyzine HCl (Atarax) 25 mg PO DAILY [facility] Last Admin: 09/08/17 09:20 Dose: 25 mg Lisinopril (Zestril) 20 mg PO DAILY [facility] Last Admin: 09/08/17 09:21 Dose: 20 mg Loperamide HCl (Imodium) 2 mg PO PRN PRN PRN Reason: Diarrhea/Loose Stools Loratadine (Claritin) 10 mg PO DAILYPRN PRN PRN Reason: Sinus Symptoms Magnesium Hydroxide (Milk Of Magnesium) 30 ml PO DAILYPRN PRN PRN Reason: Constipation Mineral Oil/White Petrolatum (Eucerin Cream) 0 gm TOP BIDPRN PRN PRN Reason: Dry Skin Nitroglycerin (Nitrostat) 0.4 mg SL Q5MIN PRN PRN Reason: Chest Pain Ondansetron HCl (Zofran Odt) 4 mg PO Q6H PRN PRN Reason: Nausea/Vomiting Last Admin: 09/08/17 01:10 Dose: 4 mg Ondansetron HCl (Zofran) 4 mg IVP Q6H PRN PRN Reason: Nausea/Vomiting Phenol (Chloraseptic [place] 180 Ml Bot) 0 ml PO PRN PRN PRN Reason: Sore Throat Phenytoin Sodium (Dilantin Er) 100 mg PO TID [facility] Last Admin: 09/08/17 09:21 Dose: 100 mg Potassium Chloride (K-Dur) 20 meq PO QAM-WM [facility] Last Admin: 09/08/17 09:20 Dose: 20 meq Pregabalin (Lyrica) 75 mg PO DAILY [facility] Last Admin: 09/08/17 09:21 Dose: 75 mg Senna (Senokot) 2 tab PO HSPRN PRN PRN Reason: Constipation Sodium Chloride ([place] Nasal [place] 0.65%) 0 ml EA NARE QIDPRN PRN PRN Reason: Nasal Congestion Sodium Chloride (Flush - Normal Saline) 10 ml IVF Q12HR [facility] Last Admin: 09/08/17 09:21 Dose: 10 ml Sodium Chloride (Flush - Normal Saline) 10 ml IVF PRN PRN PRN Reason: Saline Flush Warfarin Sodium (Coumadin) 7.5 mg PO 1700 [facility] Last Admin: 09/07/17 16:00 Dose: 7.5 mg
[2017-09-08] MEDS: HYDROcodone/Acetaminophen 5/325 mg Tablet PO PRN (12:38)
[2017-09-08] MEDS: Warfarin Sodium 7.5 MG TAB PO SCH (15:47)
[2017-09-09] MEDS ORDERED: Lorazepam 2 MG/ML VIAL ONE (00:04)
[2017-09-09] MEDS ORDERED: Lorazepam 2 MG/ML VIAL SLOW IVP SCH (00:15)
[2017-09-09] MEDS ORDERED: Ziprasidone 20 MG VIAL IM SCH (02:00)
[2017-09-09] MEDS ORDERED: Sterile Water 10 ML VIAL FS SCH (02:15)
[2017-09-09 06:04] LABS: #Basophils 0.1 thou/uL (0.0-0.2); #Monocytes 0.6 thou/uL (0.11-0.59); #Neutrophils 3.2 thou/uL (1.40-6.50); %Basophils 1.1 % (0.0-1.0); %Eosinophils 0.5 % (0.0-10.0); %Lymphocytes 43.4 % (21.0-51.0); %Monocytes 8.7 % (0.0-10.0); %Neutrophils 46.2 % (42.0-75.0); Mean Corpuscular HGB CONC 33.3 g/dL (32.0-36.0); Mean Corpuscular Hemoglobin 29.9 pg (27.0-31.0); Mean Corpuscular Volume 89.8 fl (81.0-99.0); Mean Platelet Volume 8.1 fL (7.4-10.4); Platelet Count 253 thou/uL (130-400); RBC Distribution Width 11.6 % (11.5-14.5); Red Blood Cell (RBC) Count 4.68 mill/uL (4.20-5.40)
[2017-09-09 06:05] LABS: INR-International Normal Ratio 2.1; Prothrombin Time 24.5 SEC (12.0-14.7)
[2017-09-09 06:16] LABS: ALT (SGPT) 16 U/L (8-55); AST (SGOT) 23 U/L (5-34); Albumin 3.9 g/dL (3.4-4.8); Alkaline Phosphatase 105 U/L (40-150); Anion Gap 14 mmol/L (10-20); BUN (Urea Nitrogen) 18 mg/dL (9.8-20.1); Bilirubin, Total 0.3 mg/dL (0.2-1.2); Calc. Creatinine Clearance 73 mL/min (70-130); Calcium 9.7 mg/dL (7.8-10.44); Carbon Dioxide 19 mmol/L (23-31); Chloride 108 mmol/L (98-107); Estimated GFR-MDRD 78; Globulin 3.4 g/dL (2.4-3.5); Glucose 80 mg/dL (80-115); Potassium 4.7 mmol/L (3.5-5.1); Protein, Total 7.3 g/dL (6.0-8.3); Sodium 136 mmol/L (136-145)
[2017-09-09] MEDS: Aspirin 81 mg Enteric Coated Tablet PO SCH (08:33)
[2017-09-09] MEDS: Digoxin 0.125 MG TAB PO SCH (08:33)
[2017-09-09] MEDS: Enoxaparin Sodium 60 MG/0.6 ML SYRINGE SC SCH (08:33)
[2017-09-09] MEDS: Potassium Chloride 20 MEQ TAB PO SCH (08:33)
[2017-09-09] MEDS: Baclofen 10 MG TAB PO SCH (08:33)
[2017-09-09] MEDS: Atorvastatin Calcium 20 MG TAB PO SCH (08:33)
[2017-09-09] MEDS: Lisinopril 20 MG TAB PO SCH (08:34)
[2017-09-09] MEDS: Ezetimibe 10 MG TAB PO SCH (08:34)
[2017-09-09] MEDS: Pregabalin 75 MG CAP PO SCH (08:34)
[2017-09-09] MEDS: hydrOXYzine 25 MG TAB PO SCH (08:34)
[2017-09-09] MEDS: Famotidine 20 MG TAB PO SCH ×2 (08:34→20:26)
--- NOTE | 2017-09-09 10:35 | DIS ---
PRIMARY CARE PHYSICIAN: Livia Olmstead DATE OF ADIMSSION: 09/05/2017 DATE OF DISCHARGE: 09/09/2017 DISCHARGE DISPOSITION: senior living home/rehab. PRIMARY DISCHARGE DIAGNOSES: 1. Left acute ischemic stroke, middle cerebral artery territory. 2. Subtherapeutic INR. SECONDARY DISCHARGE DIAGNOSES: Chronic systolic and diastolic heart failure, moderate tricuspid regurgitation, moderate aortic regurgitation, peripheral neuropathy, history of multiple cerebrovascular accidents in past with residual weakness, vascular dementia, seizure disorder, hypertension, dyslipidemia, history of mechanical mitral valve replacement, chronic anticoagulation with warfarin. PRIMARY PROCEDURE/OPERATION: None. RADIOLOGICAL INVESTIGATION: Brain MRI confirmed moderate sized acute posterior division left middle cerebral artery territory infarction, encephalomalacia, chronic ischemic changes, multifocal lacunar infarct in the cerebellum bilaterally. Carotid Doppler was negative for any stenosis. Echocardiography showed EF 45-50%, moderate aortic regurgitation, tricuspid regurgitation, and mechanical mitral valve. SIGNIFICANT LABS: WBC 7.0, hemoglobin 14.0, platelet 253. INR of 2.1. Sodium 136, potassium 4.7, BUN 18, creatinine 0.89, glucose 80, calcium 9.7. LFT normal, homocysteine 11.31. Dilantin level 10.7. Syphilis negative. DISCHARGE MEDICATIONS: Aspirin 81 mg p.o. daily, Lipitor 20 mg p.o. daily, Baclofen 20 mg p.o. daily, digoxin 125 mcg p.o. daily, Zetia 10 mg p.o. daily, Pepcid 20 mg p.o. b.i.d., Atarax 25 mg p.o. daily, lisinopril 20 mg p.o. daily, Dilantin 100 mg p.o. t.i.d., potassium chloride 20 mEq p.o. daily, Lyrica 75 mg p.o. daily, warfarin 7.5 mg p.o. daily. CONTRAINDICATIONS: None. CODE STATUS: FULL CODE. INPATIENT CONSULTANTS: Dr. Alex Bhagat, Neurology, was following while in hospital. TEST RESULTS PENDING ON DISCHARGE: None. ALLERGIES: ERYTHROMYCIN. DISCHARGE PLAN: Post hospital, the patient will follow up with primary care physician. The patient is discharged to rehab. HOSPITAL COURSE: The patient is a 61-year-old female who has mechanical mitral valve and she was on oral anticoagulation with warfarin. When she came to the ER, her INR was subtherapeutic with INR 1.1. The patient presented to emergency room with neurological symptoms which was suspicious for right-sided weakness and unsteadiness. The patient was suffering from acute CVA and we did a stroke workup while in hospital, MRI brain and carotid Doppler was done. Echocardiography was also obtained. During this admission, the patient's Dilantin level was subtherapeutic and that is why we loaded with Dilantin started Dilantin 100 mg t.i.d., Dilantin level was therapeutic. Subsequently, her INR was subtherapeutic and that is why she required Lovenox and warfarin until INR was therapeutic and now today's INR is therapeutic and that is why we are discontinuing Lovenox and the patient will continue warfarin therapy only. The patient needs rehab placement and that is why with help of case mgr, we are arranging rehab today. If rehabilitation is arranged, then this patient is medically stable for discharge today to rehab. The patient is seen and examined at bedside today. VITAL SIGNS: Currently, temperature 97.3, pulse 68, blood pressure 148/67, saturation 98%, weight 156 pound. GENERAL: The patient is currently alert, awake, no acute distress. HEAD: Normocephalic, atraumatic. EYES: Pupils round, reactive to light. Extraocular muscle intact. ENT: Oropharynx within normal limit. NECK: Supple, no JVD, no thyromegaly, no carotid bruits. LUNGS: Clear without any rhonchi or rales. CARDIAC: S1, S2 appears regular. No murmur, but prosthetic sounds heard. ABDOMEN: Soft and benign. EXTREMITIES: No edema. NEUROLOGIC: The patient is moving all 4 limbs, but she does have weakness on both sides. Paperwork for discharge done. Discharge medication reconciliation done. [facility]
--- NOTE | 2017-09-09 11:32 | PDOC.PN ---
- Subjective Encounter Start Date: 09/09/17 Encounter Start Time: 11:30 Patient seen and examined FOR CVA. No new complaints. No overnight events - Objective Resuscitation Status: Resuscitation Status FULL:Full Resuscitation MAR Reviewed: Yes Vital Signs & Weight: Vital Signs (12 hours) Temp Pulse Pulse Pulse Resp BP BP 09/09/17 08:36 67 65 162/81 H 09/09/17 08:34 148/67 H 09/09/17 08:33 68 09/09/17 08:00 97.3 F L 68 16 09/09/17 07:40 98.8 F 61 18 BP BP Pulse Ox 09/09/17 08:36 140/66 09/09/17 08:34 09/09/17 08:33 09/09/17 08:00 139/80 98 09/09/17 07:40 95 Weight Weight 156 lb I&O: 09/08/17 09/09/17 09/10/17 06:59 06:59 06:59 Intake Total 845 700 Output Total 1000 Balance 845 -300 Result Diagrams: 09/09/17 05:02 09/09/17 05:02 EKG Reviewed by me: Yes Phys Exam - Physical Examination Constitutional: NAD HEENT: PERRLA, moist MMs, sclera anicteric Neck: no JVD, supple Respiratory: no wheezing, no rales, no rhonchi Cardiovascular: RRR, no significant murmur, no rub Gastrointestinal: soft, non-tender, no distention, positive bowel sounds Musculoskeletal: no edema, pulses present Neurological: moves all 4 limbs Lymphatic: no nodes Psychiatric: normal affect Skin: no rash, normal turgor Dx/Plan (1) Left acute arterial ischemic stroke, MCA (middle cerebral artery) Code(s): I63.512 - CEREB INFRC D/T UNSP OCCLS OR STENOS OF LEFT MID CEREB ART Status: Acute Comment: suspecting embolic (2) Subtherapeutic international normalized ratio (INR) Code(s): R79.1 - ABNORMAL COAGULATION PROFILE Status: Acute (3) CVA, old, hemiparesis Code(s): I69.359 - HEMIPLGA FOLLOWING CEREBRAL INFARCTION AFFECTING UNSP SIDE Status: Chronic (4) Chronic combined systolic and diastolic CHF, NYHA class 2 and ELIAZAR/AHA stage C Code(s): I50.42 - CHRONIC COMBINED SYSTOLIC AND DIASTOLIC HRT FAIL Status: Chronic (5) Dyslipidemia Code(s): E78.5 - HYPERLIPIDEMIA, UNSPECIFIED Status: Chronic (6) H/O mitral valve replacement with mechanical valve Code(s): Z95.2 - PRESENCE OF PROSTHETIC HEART VALVE Status: Chronic (7) Hypertension Code(s): I10 - ESSENTIAL (PRIMARY) HYPERTENSION Status: Chronic (8) Moderate aortic regurgitation Code(s): I35.1 - NONRHEUMATIC AORTIC (VALVE) INSUFFICIENCY Status: Chronic (9) Moderate tricuspid regurgitation Code(s): I07.1 - RHEUMATIC TRICUSPID INSUFFICIENCY Status: Chronic (10) Peripheral neuropathy Code(s): G62.9 - POLYNEUROPATHY, UNSPECIFIED Status: Chronic (11) Seizure disorder Code(s): G40.909 - EPILEPSY, UNSP, NOT INTRACTABLE, WITHOUT STATUS EPILEPTICUS Status: Chronic (12) Vascular dementia Code(s): F01.50 - VASCULAR DEMENTIA WITHOUT BEHAVIORAL DISTURBANCE Status: Chronic - Plan cont current plan of care, PT/OT, secondary social studies teacher * medication reviewed as below * symptomatic treatment * await placement * now dc lovenox * continue warfarin * dc any time when placement arranged. Review of Systems - Review of Systems Eyes: negative: Pain, Vision Change, Conjunctivae Inflammation, Eyelid Inflammation, Redness, Other ENT: negative: Ear Pain, Ear Discharge, Nose Pain, Nose Discharge, Nose Congestion, Mouth Pain, Mouth Swelling, Throat Pain, Throat Swelling, Other Respiratory: negative: Cough, Dry, Shortness of Breath, Hemoptysis, SOB with Excertion, Pleuritic Pain, Sputum, Wheezing Cardiovascular: negative: chest pain, palpitations, orthopnea, paroxysmal nocturnal dyspnea, edema, light headedness, other Gastrointestinal: negative: Nausea, Vomiting, Abdominal Pain, Diarrhea, Constipation, Melena, Hematochezia, Other Genitourinary: negative: Dysuria, Frequency, Incontinence, Hematuria, Retention , Other Musculoskeletal: negative: Neck Pain, Shoulder Pain, Arm Pain, Back Pain, Hand Pain, Leg Pain, Foot Pain, Other - Medications/Allergies Allergies/Adverse Reactions: Allergies Allergy/AdvReac Type Severity Reaction Status Date / Time erythromycin base Allergy Verified 09/05/17 02:39 Medications: Current Medications Acetaminophen (Tylenol) 650 mg PO Q4H PRN PRN Reason: Headache/Fever or Pain Last Admin: 09/08/17 09:24 Dose: 650 mg Hydrocodone Bitart/Acetaminophen ([place] 5/325) 1 tab PO Q4H PRN PRN Reason: Moderate Pain (4-6) Last Admin: 09/08/17 12:38 Dose: 1 tab Al Hydroxide/Mg Hydroxide (Maalox) 30 ml PO Q6H PRN PRN Reason: Heartburn or Indigestion Artificial Tears (Tears Naturale) 0 drop EA EYE PRN PRN PRN Reason: Dry Eyes Aspirin (Ecotrin) 81 mg PO DAILY [facility] Last Admin: 09/09/17 08:33 Dose: 81 mg Atorvastatin Calcium (Lipitor) 20 mg PO DAILY [facility] Last Admin: 09/09/17 08:33 Dose: 20 mg Baclofen (Lioresal) 20 mg PO DAILY [facility] Last Admin: 09/09/17 08:33 Dose: 20 mg Digoxin (Lanoxin) 0.125 mg PO DAILY [facility] Last Admin: 09/09/17 08:33 Dose: 0.125 mg Ezetimibe (Zetia) 10 mg PO DAILY [facility] Last Admin: 09/09/17 08:34 Dose: 10 mg Famotidine (Pepcid) 20 mg PO BID [facility] Last Admin: 09/09/17 08:34 Dose: 20 mg Guaifenesin (Robitussin Sf) 200 mg PO Q4H PRN PRN Reason: Cough Hydralazine HCl (Apresoline) 10 mg SLOW IVP Q4H PRN PRN Reason: Systolic BP > 180 Last Admin: 09/07/17 23:44 Dose: 10 mg Hydroxyzine HCl (Atarax) 25 mg PO DAILY [facility] Last Admin: 09/09/17 08:34 Dose: 25 mg Lisinopril (Zestril) 20 mg PO DAILY [facility] Last Admin: 09/09/17 08:34 Dose: 20 mg Loperamide HCl (Imodium) 2 mg PO PRN PRN PRN Reason: Diarrhea/Loose Stools Loratadine (Claritin) 10 mg PO DAILYPRN PRN PRN Reason: Sinus Symptoms Magnesium Hydroxide (Milk Of Magnesium) 30 ml PO DAILYPRN PRN PRN Reason: Constipation Mineral Oil/White Petrolatum (Eucerin Cream) 0 gm TOP BIDPRN PRN PRN Reason: Dry Skin Nitroglycerin (Nitrostat) 0.4 mg SL Q5MIN PRN PRN Reason: Chest Pain Ondansetron HCl (Zofran Odt) 4 mg PO Q6H PRN PRN Reason: Nausea/Vomiting Last Admin: 09/08/17 01:10 Dose: 4 mg Ondansetron HCl (Zofran) 4 mg IVP Q6H PRN PRN Reason: Nausea/Vomiting Phenol (Chloraseptic [place] 180 Ml Bot) 0 ml PO PRN PRN PRN Reason: Sore Throat Phenytoin Sodium (Dilantin Er) 100 mg PO TID [facility] Last Admin: 09/09/17 08:34 Dose: 100 mg Potassium Chloride (K-Dur) 20 meq PO QAM-WM [facility] Last Admin: 09/09/17 08:33 Dose: 20 meq Pregabalin (Lyrica) 75 mg PO DAILY [facility] Last Admin: 09/09/17 08:34 Dose: 75 mg Senna (Senokot) 2 tab PO HSPRN PRN PRN Reason: Constipation Sodium Chloride ([place] Nasal [place] 0.65%) 0 ml EA NARE QIDPRN PRN PRN Reason: Nasal Congestion Sodium Chloride (Flush - Normal Saline) 10 ml IVF Q12HR [facility] Last Admin: 09/09/17 08:33 Dose: Not Given Sodium Chloride (Flush - Normal Saline) 10 ml IVF PRN PRN PRN Reason: Saline Flush Warfarin Sodium (Coumadin) 7.5 mg PO 1700 [facility] Last Admin: 09/08/17 15:47 Dose: 7.5 mg
[2017-09-09] MEDS: Warfarin Sodium 7.5 MG TAB PO SCH (16:07)
[2017-09-09] MEDS: HYDROcodone/Acetaminophen 5/325 mg Tablet PO PRN (20:25)
[2017-09-09] MEDS ORDERED: Lorazepam 0.5 MG TAB PO SCH ×2 (22:00→23:00)
[2017-09-09] MEDS ORDERED: Diltiazem 125 MG in Sodium Chloride 0.9% 100 ML IVPB SCH (23:45)
[2017-09-09 23:57] LABS: #Basophils 0.1 thou/uL (0.0-0.2); #Eosinphils 0.1 thou/uL (0.0-0.7); #Lymphocytes 3.2 thou/uL (1.20-3.40); #Monocytes 0.6 thou/uL (0.11-0.59); #Neutrophils 3.5 thou/uL (1.40-6.50); %Basophils 0.7 % (0.0-1.0); %Eosinophils 0.9 % (0.0-10.0); %Lymphocytes 43.1 % (21.0-51.0); %Monocytes 8.4 % (0.0-10.0); %Neutrophils 46.8 % (42.0-75.0); Mean Corpuscular HGB CONC 34.1 g/dL (32.0-36.0); Mean Corpuscular Hemoglobin 30.3 pg (27.0-31.0); Mean Corpuscular Volume 88.8 fl (81.0-99.0); Mean Platelet Volume 6.8 fL (7.4-10.4); Platelet Count 332 thou/uL (130-400); RBC Distribution Width 11.7 % (11.5-14.5); Red Blood Cell (RBC) Count 4.95 mill/uL (4.20-5.40); White Blood Cell (WBC) Count 7.4 thou/uL (4.8-10.8)
[2017-09-10 00:19] LABS: Anion Gap 13 mmol/L (10-20); BUN (Urea Nitrogen) 24 mg/dL (9.8-20.1); Calc. Creatinine Clearance 57 mL/min (70-130); Calcium 10.2 mg/dL (7.8-10.44); Carbon Dioxide 21 mmol/L (23-31); Chloride 107 mmol/L (98-107); Estimated GFR-MDRD 58; Glucose 92 mg/dL (80-115); Magnesium 2.1 mg/dL (1.6-2.6); Potassium 4.4 mmol/L (3.5-5.1); Sodium 137 mmol/L (136-145)
[2017-09-10 00:22] LABS: Troponin I 0.035 ng/mL (< 0.028)
[2017-09-10] MEDS ORDERED: Diltiazem 125 MG in Sodium Chloride 0.9% 100 ML IVPB SCH (02:53)
[2017-09-10] MEDS ORDERED: Digoxin 0.5 MG/2 ML AMP SLOW IVP SCH (03:00)
[2017-09-10] MEDS ORDERED: Sodium Chloride 0.9% 500 ML IV SCH (03:15)
[2017-09-10 03:22] LABS: INR-International Normal Ratio 2.5; Prothrombin Time 28.4 SEC (12.0-14.7)
[2017-09-10 03:43] LABS: Troponin I 0.036 ng/mL (< 0.028)
--- NOTE | 2017-09-10 04:15 | PDOC.EVN ---
Event Note - Event Note Event Note: RN called earlier - Pt tachycardic with HR in 150s. HR improved with Digoxin/ Cardizem. Pt on Cardizem drip.
[2017-09-10 04:17] LABS: Digoxin 0.44 ng/mL (0.8-2.0)
[2017-09-10] MEDS: Lisinopril 20 MG TAB PO SCH (08:34)
[2017-09-10] MEDS: Atorvastatin Calcium 20 MG TAB PO SCH (08:34)
[2017-09-10] MEDS: Aspirin 81 mg Enteric Coated Tablet PO SCH (08:34)
[2017-09-10] MEDS: Ezetimibe 10 MG TAB PO SCH (08:34)
[2017-09-10] MEDS: hydrOXYzine 25 MG TAB PO SCH (08:34)
[2017-09-10] MEDS: Potassium Chloride 20 MEQ TAB PO SCH (08:34)
[2017-09-10] MEDS: Famotidine 20 MG TAB PO SCH ×2 (08:34→20:24)
[2017-09-10] MEDS: Baclofen 10 MG TAB PO SCH (08:34)
[2017-09-10] MEDS: Digoxin 0.125 MG TAB PO SCH (08:34)
[2017-09-10] MEDS: Pregabalin 75 MG CAP PO SCH (08:35)
--- NOTE | 2017-09-10 09:17 | PDOC.PN ---
- Subjective Encounter Start Date: 09/10/17 Encounter Start Time: 07:10 Patient seen and examined CVA. last night pt was more confused, per family she did not sleep good for last couple night last night she was in afib with RVR, so digoxin was given and cardizem bolus and after that cardizem drip was started - Objective Resuscitation Status: Resuscitation Status FULL:Full Resuscitation MAR Reviewed: Yes Vital Signs & Weight: Vital Signs (12 hours) Temp Pulse Resp BP BP Pulse Ox 09/10/17 08:34 73 121/77 09/10/17 08:00 97.8 F 73 20 09/10/17 07:59 97.8 F 80 20 121/77 98 09/10/17 04:15 98.5 F 65 16 138/73 95 09/10/17 03:17 156 H 09/09/17 23:52 98.4 F 156 H 16 123/74 95 Weight Weight 138 lb 4.8 oz I&O: 09/09/17 09/10/17 09/11/17 06:59 06:59 06:59 Intake Total 700 1550 Output Total 1000 Balance -300 1550 Result Diagrams: 09/09/17 23:51 09/09/17 23:51 EKG Reviewed by me: Yes (afib) Phys Exam - Physical Examination Constitutional: NAD HEENT: PERRLA, moist MMs, sclera anicteric Neck: no JVD, supple Respiratory: no wheezing, no rales, no rhonchi Cardiovascular: no rub, irregular prosthetic sound+ Gastrointestinal: soft, non-tender, no distention, positive bowel sounds Musculoskeletal: no edema, pulses present Neurological: moves all 4 limbs Lymphatic: no nodes Psychiatric: normal affect Deviation from normal: baseline dementia Skin: no rash, normal turgor Dx/Plan (1) Atrial fibrillation with RVR Code(s): I48.91 - UNSPECIFIED ATRIAL FIBRILLATION Status: Acute (2) Left acute arterial ischemic stroke, MCA (middle cerebral artery) Code(s): I63.512 - CEREB INFRC D/T UNSP OCCLS OR STENOS OF LEFT MID CEREB ART Status: Acute Comment: suspecting embolic (3) Subtherapeutic international normalized ratio (INR) Code(s): R79.1 - ABNORMAL COAGULATION PROFILE Status: Acute (4) CVA, old, hemiparesis Code(s): I69.359 - HEMIPLGA FOLLOWING CEREBRAL INFARCTION AFFECTING UNSP SIDE Status: Chronic (5) Chronic combined systolic and diastolic CHF, NYHA class 2 and ELIAZAR/AHA stage C Code(s): I50.42 - CHRONIC COMBINED SYSTOLIC AND DIASTOLIC HRT FAIL Status: Chronic (6) Dyslipidemia Code(s): E78.5 - HYPERLIPIDEMIA, UNSPECIFIED Status: Chronic (7) H/O mitral valve replacement with mechanical valve Code(s): Z95.2 - PRESENCE OF PROSTHETIC HEART VALVE Status: Chronic (8) Hypertension Code(s): I10 - ESSENTIAL (PRIMARY) HYPERTENSION Status: Chronic (9) Moderate aortic regurgitation Code(s): I35.1 - NONRHEUMATIC AORTIC (VALVE) INSUFFICIENCY Status: Chronic (10) Moderate tricuspid regurgitation Code(s): I07.1 - RHEUMATIC TRICUSPID INSUFFICIENCY Status: Chronic (11) Peripheral neuropathy Code(s): G62.9 - POLYNEUROPATHY, UNSPECIFIED Status: Chronic (12) Seizure disorder Code(s): G40.909 - EPILEPSY, UNSP, NOT INTRACTABLE, WITHOUT STATUS EPILEPTICUS Status: Chronic (13) Vascular dementia Code(s): F01.50 - VASCULAR DEMENTIA WITHOUT BEHAVIORAL DISTURBANCE Status: Chronic (14) Demand ischemia Code(s): I24.8 - OTHER FORMS OF ACUTE ISCHEMIC HEART DISEASE Status: Acute - Plan cont current plan of care, plan discussed w/ family, PT/OT, pediatric social worker * continue cardizem drip * cardiology will be consulted * medication reviewed as below * symptomatic treatment * will monitor on tele * not ready for discharge today * await rehab placement pending insurance approval * will reduce warfarin 5 mg po daily * discussed with family bedside. * restoril prn for insomnia Review of Systems - Review of Systems Constitutional: negative: fever, chills, sweats, weakness, malaise, other Eyes: negative: Pain, Vision Change, Conjunctivae Inflammation, Eyelid Inflammation, Redness, Other ENT: negative: Ear Pain, Ear Discharge, Nose Pain, Nose Discharge, Nose Congestion, Mouth Pain, Mouth Swelling, Throat Pain, Throat Swelling, Other Respiratory: negative: Cough, Dry, Shortness of Breath, Hemoptysis, SOB with Excertion, Pleuritic Pain, Sputum, Wheezing Cardiovascular: negative: chest pain, palpitations, orthopnea, paroxysmal nocturnal dyspnea, edema, light headedness, other Gastrointestinal: negative: Nausea, Vomiting, Abdominal Pain, Diarrhea, Constipation, Melena, Hematochezia, Other Genitourinary: negative: Dysuria, Frequency, Incontinence, Hematuria, Retention , Other Musculoskeletal: negative: Neck Pain, Shoulder Pain, Arm Pain, Back Pain, Hand Pain, Leg Pain, Foot Pain, Other Skin: negative: Rash, Lesions, Favian, Bruising, Other Neurological: Confusion. negative: Weakness, Numbness, Incoordination, Change in Speech, Seizures, Other - Medications/Allergies Allergies/Adverse Reactions: Allergies Allergy/AdvReac Type Severity Reaction Status Date / Time erythromycin base Allergy Verified 09/05/17 02:39 Medications: Current Medications Acetaminophen (Tylenol) 650 mg PO Q4H PRN PRN Reason: Headache/Fever or Pain Last Admin: 09/08/17 09:24 Dose: 650 mg Hydrocodone Bitart/Acetaminophen ([place] 5/325) 1 tab PO Q4H PRN PRN Reason: Moderate Pain (4-6) Last Admin: 09/09/17 20:25 Dose: 1 tab Al Hydroxide/Mg Hydroxide (Maalox) 30 ml PO Q6H PRN PRN Reason: Heartburn or Indigestion Artificial Tears (Tears Naturale) 0 drop EA EYE PRN PRN PRN Reason: Dry Eyes Aspirin (Ecotrin) 81 mg PO DAILY [facility] Last Admin: 09/10/17 08:34 Dose: 81 mg Atorvastatin Calcium (Lipitor) 20 mg PO DAILY [facility] Last Admin: 09/10/17 08:34 Dose: 20 mg Baclofen (Lioresal) 20 mg PO DAILY [facility] Last Admin: 09/10/17 08:34 Dose: 20 mg Digoxin (Lanoxin) 0.125 mg PO DAILY [facility] Last Admin: 09/10/17 08:34 Dose: 0.125 mg Ezetimibe (Zetia) 10 mg PO DAILY [facility] Last Admin: 09/10/17 08:34 Dose: 10 mg Famotidine (Pepcid) 20 mg PO BID [facility] Last Admin: 09/10/17 08:34 Dose: 20 mg Guaifenesin (Robitussin Sf) 200 mg PO Q4H PRN PRN Reason: Cough Hydralazine HCl (Apresoline) 10 mg SLOW IVP Q4H PRN PRN Reason: Systolic BP > 180 Last Admin: 09/07/17 23:44 Dose: 10 mg Hydroxyzine HCl (Atarax) 25 mg PO DAILY [facility] Last Admin: 09/10/17 08:34 Dose: 25 mg Diltiazem HCl 125 mg/ Sodium (Chloride) 125 mls @ 10 mls/hr IVPB INF [facility]; 10 MG /HR PRN Reason: Protocol Lisinopril (Zestril) 20 mg PO DAILY [facility] Last Admin: 09/10/17 08:34 Dose: 20 mg Loperamide HCl (Imodium) 2 mg PO PRN PRN PRN Reason: Diarrhea/Loose Stools Loratadine (Claritin) 10 mg PO DAILYPRN PRN PRN Reason: Sinus Symptoms Magnesium Hydroxide (Milk Of Magnesium) 30 ml PO DAILYPRN PRN PRN Reason: Constipation Mineral Oil/White Petrolatum (Eucerin Cream) 0 gm TOP BIDPRN PRN PRN Reason: Dry Skin Nitroglycerin (Nitrostat) 0.4 mg SL Q5MIN PRN PRN Reason: Chest Pain Ondansetron HCl (Zofran Odt) 4 mg PO Q6H PRN PRN Reason: Nausea/Vomiting Last Admin: 09/08/17 01:10 Dose: 4 mg Ondansetron HCl (Zofran) 4 mg IVP Q6H PRN PRN Reason: Nausea/Vomiting Phenol (Chloraseptic [place] 180 Ml Bot) 0 ml PO PRN PRN PRN Reason: Sore Throat Phenytoin Sodium (Dilantin Er) 100 mg PO TID [facility] Last Admin: 09/10/17 08:34 Dose: 100 mg Potassium Chloride (K-Dur) 20 meq PO QAM-WM [facility] Last Admin: 09/10/17 08:34 Dose: 20 meq Pregabalin (Lyrica) 75 mg PO DAILY [facility] Last Admin: 09/10/17 08:35 Dose: 75 mg Senna (Senokot) 2 tab PO HSPRN PRN PRN Reason: Constipation Sodium Chloride ([place] Nasal [place] 0.65%) 0 ml EA NARE QIDPRN PRN PRN Reason: Nasal Congestion Sodium Chloride (Flush - Normal Saline) 10 ml IVF Q12HR [facility] Last Admin: 09/10/17 08:35 Dose: Not Given Sodium Chloride (Flush - Normal Saline) 10 ml IVF PRN PRN PRN Reason: Saline Flush Last Admin: 09/10/17 00:46 Dose: 10 ml Warfarin Sodium (Coumadin) 5 mg PO 1700 [facility]
[2017-09-10] MEDS ORDERED: Temazepam 15 MG CAP PO PRN (09:19)
--- NOTE | 2017-09-10 12:37 | CON ---
DATE OF CONSULTATION: 09/10/2017 HISTORY OF PRESENT ILLNESS: Patient is an unfortunate 61-year-old woman with a history of coronary a rtery bypass graft surgery and mitral valve replacement, who developed rapid palpitations. The patie nt underwent mitral valve replacement in 1987. She also had coronary artery bypass surgery. The pat iemackenzie has been subsequently on medical therapy. She has a history of noncompliance. She has had prev ious cerebrovascular accident. The patient apparently has had difficulty taking her medication and p resented after once again developing difficulty with left-sided weakness. The patient apparently has been out of her Coumadin and aspirin. The patient has been in the hospital several days when she de veloped rapid palpitations. She denied having any chest discomfort. PAST MEDICAL HISTORY: Significant for, 1. Coronary artery disease. 2. Status post mitral valve replacement. 3. Cerebrovascular accident. 4. History of atrial fibrillation. 5. History of CVA. 6. Hypertension. 7. Dyslipidemia. PAST SURGICAL HISTORY: She has had mitral valve replacement, coronary artery bypass surgery, hystere ctomy, tubal ligation, foot surgery, cholecystectomy. ALLERGIES: She is allergic to ERYTHROMYCIN. SOCIAL HISTORY: She is a former smoker. She lives with her . FAMILY HISTORY: No strong family history of heart disease. MEDICATIONS ON ADMISSION: Aspirin 81 daily, Lipitor 20 daily, baclofen 20 daily, digoxin 0.125 daily , Zetia 10 daily, Atarax 25 daily, lisinopril 20 daily, Dilantin 30 daily, potassium 20 daily, Lyrica 75 daily, and Coumadin 5 mg at bedtime. REVIEW OF SYSTEMS: Ten point system noticeable for marked memory issues and weakness. PHYSICAL EXAMINATION: VITAL SIGNS: This is an ill-appearing woman in no acute distress. VITAL SIGNS: Blood pressure 121/77, heart rate is 76 and regular. NECK: Showed no jugular venous distention. LUNGS: Clear to auscultation. HEART: Regular rate and rhythm, normal S1, S2 with a mitral click. ABDOMEN: Nondistended. EXTREMITIES: Showed no edema. SKIN: Warm and dry. VASCULAR: Radial pulses 2+. LABORATORY DATA AND IMAGING DATA: Sodium 137, potassium 4.4, chloride 107, bicarbonate 21, BUN 24, c reatinine is 1.15. Her white blood count 7.4, hemoglobin 15.0, hematocrit 43.9, and platelets 332. Her INR was 2.5. Her telemetry monitoring revealed SVT with a rate of approximately 170. IMPRESSION: 1. Supraventricular tachycardia. 2. History of atrial fibrillation. 3. Acute cerebrovascular accident. 4. History of mitral valve replacement. 5. History of coronary artery bypass surgery. 6. Hypertension. 7. Dyslipidemia. 8. Noncompliance. This patient suffered cerebrovascular accident. She has been noncompliant with her Coumadin. From a cardiac standpoint, would recommend treating her with Toprol for adding Toprol to her medical regime n. We will follow this patient with you through her hospitalization.
[2017-09-10] MEDS ORDERED: Warfarin Sodium 5 MG TAB PO SCH (17:00)
[2017-09-11 05:32] LABS: INR-International Normal Ratio 2.7; Prothrombin Time 29.8 SEC (12.0-14.7)
[2017-09-11 05:35] LABS: #Basophils 0.1 thou/uL (0.0-0.2); #Eosinphils 0.2 thou/uL (0.0-0.7); #Lymphocytes 3.4 thou/uL (1.20-3.40); #Monocytes 0.6 thou/uL (0.11-0.59); #Neutrophils 2.8 thou/uL (1.40-6.50); %Basophils 1.3 % (0.0-1.0); %Lymphocytes 47.5 % (21.0-51.0); %Neutrophils 39.4 % (42.0-75.0); Mean Platelet Volume 7.8 fL (7.4-10.4); Platelet Count 279 thou/uL (130-400); RBC Distribution Width 11.7 % (11.5-14.5); Red Blood Cell (RBC) Count 4.52 mill/uL (4.20-5.40); White Blood Cell (WBC) Count 7.1 thou/uL (4.8-10.8)
[2017-09-11 05:48] LABS: Anion Gap 11 mmol/L (10-20); BUN (Urea Nitrogen) 26 mg/dL (9.8-20.1); Calc. Creatinine Clearance 70 mL/min (70-130); Calcium 9.5 mg/dL (7.8-10.44); Carbon Dioxide 21 mmol/L (23-31); Chloride 109 mmol/L (98-107); Estimated GFR-MDRD 83; Glucose 83 mg/dL (80-115); Potassium 4.5 mmol/L (3.5-5.1); Sodium 136 mmol/L (136-145)
[2017-09-11 07:36] VITALS: TEMP 97.9
[2017-09-11] MEDS: Baclofen 10 MG TAB PO SCH (09:22)
[2017-09-11] MEDS: Digoxin 0.125 MG TAB PO SCH (09:22)
[2017-09-11] MEDS: Pregabalin 75 MG CAP PO SCH (09:23)
[2017-09-11] MEDS: Atorvastatin Calcium 20 MG TAB PO SCH (09:23)
[2017-09-11] MEDS: Lisinopril 20 MG TAB PO SCH (09:23)
[2017-09-11] MEDS: Famotidine 20 MG TAB PO SCH (09:24)
[2017-09-11] MEDS: Potassium Chloride 20 MEQ TAB PO SCH (09:24)
[2017-09-11] MEDS: Ezetimibe 10 MG TAB PO SCH (09:24)
[2017-09-11] MEDS: Aspirin 81 mg Enteric Coated Tablet PO SCH (09:24)
[2017-09-11] MEDS: hydrOXYzine 25 MG TAB PO SCH (09:25)
--- NOTE | 2017-09-11 10:01 | PDOC.PN ---
- Subjective Encounter Start Date: 09/11/17 Encounter Start Time: 07:10 Patient seen and examined. No new complaints. No overnight events - Objective Resuscitation Status: Resuscitation Status FULL:Full Resuscitation MAR Reviewed: Yes Vital Signs & Weight: Vital Signs (12 hours) Temp Pulse Resp BP BP BP Pulse Ox 09/11/17 09:23 135/62 09/11/17 09:22 53 L 09/11/17 07:35 97.9 F 53 L 14 135/62 94 L 09/11/17 04:30 98.2 F 51 L 16 131/49 L 09/10/17 23:16 97.6 F 57 L 18 118/57 L 96 Weight Weight 140 lb 3.2 oz I&O: 09/10/17 09/11/17 09/12/17 06:59 06:59 06:59 Intake Total 1550 1104 Balance 1550 1104 Result Diagrams: 09/11/17 05:07 09/11/17 05:07 EKG Reviewed by me: Yes Phys Exam - Physical Examination Constitutional: NAD HEENT: PERRLA, moist MMs, sclera anicteric Neck: no JVD, supple Respiratory: no wheezing, no rales, no rhonchi Cardiovascular: RRR, no significant murmur, no rub prosthetic sound+ Gastrointestinal: soft, non-tender, no distention, positive bowel sounds Musculoskeletal: no edema, pulses present Neurological: moves all 4 limbs Lymphatic: no nodes Psychiatric: normal affect Skin: no rash, normal turgor Dx/Plan (1) Atrial fibrillation with RVR Code(s): I48.91 - UNSPECIFIED ATRIAL FIBRILLATION Status: Acute (2) Left acute arterial ischemic stroke, MCA (middle cerebral artery) Code(s): I63.512 - CEREB INFRC D/T UNSP OCCLS OR STENOS OF LEFT MID CEREB ART Status: Acute Comment: suspecting embolic (3) Subtherapeutic international normalized ratio (INR) Code(s): R79.1 - ABNORMAL COAGULATION PROFILE Status: Acute (4) CVA, old, hemiparesis Code(s): I69.359 - HEMIPLGA FOLLOWING CEREBRAL INFARCTION AFFECTING UNSP SIDE Status: Chronic (5) Chronic combined systolic and diastolic CHF, NYHA class 2 and ELIAZAR/AHA stage C Code(s): I50.42 - CHRONIC COMBINED SYSTOLIC AND DIASTOLIC HRT FAIL Status: Chronic (6) Dyslipidemia Code(s): E78.5 - HYPERLIPIDEMIA, UNSPECIFIED Status: Chronic (7) H/O mitral valve replacement with mechanical valve Code(s): Z95.2 - PRESENCE OF PROSTHETIC HEART VALVE Status: Chronic (8) Hypertension Code(s): I10 - ESSENTIAL (PRIMARY) HYPERTENSION Status: Chronic (9) Moderate aortic regurgitation Code(s): I35.1 - NONRHEUMATIC AORTIC (VALVE) INSUFFICIENCY Status: Chronic (10) Moderate tricuspid regurgitation Code(s): I07.1 - RHEUMATIC TRICUSPID INSUFFICIENCY Status: Chronic (11) Peripheral neuropathy Code(s): G62.9 - POLYNEUROPATHY, UNSPECIFIED Status: Chronic (12) Seizure disorder Code(s): G40.909 - EPILEPSY, UNSP, NOT INTRACTABLE, WITHOUT STATUS EPILEPTICUS Status: Chronic (13) Vascular dementia Code(s): F01.50 - VASCULAR DEMENTIA WITHOUT BEHAVIORAL DISTURBANCE Status: Chronic (14) Demand ischemia Code(s): I24.8 - OTHER FORMS OF ACUTE ISCHEMIC HEART DISEASE Status: Acute - Plan cont current plan of care, PT/OT, home health care social worker * medication reviewed as below * symptomatic treatment * see my discharge catia. Review of Systems - Review of Systems Eyes: negative: Pain, Vision Change, Conjunctivae Inflammation, Eyelid Inflammation, Redness, Other ENT: negative: Ear Pain, Ear Discharge, Nose Pain, Nose Discharge, Nose Congestion, Mouth Pain, Mouth Swelling, Throat Pain, Throat Swelling, Other Respiratory: negative: Cough, Dry, Shortness of Breath, Hemoptysis, SOB with Excertion, Pleuritic Pain, Sputum, Wheezing Cardiovascular: negative: chest pain, palpitations, orthopnea, paroxysmal nocturnal dyspnea, edema, light headedness, other Gastrointestinal: negative: Nausea, Vomiting, Abdominal Pain, Diarrhea, Constipation, Melena, Hematochezia, Other Genitourinary: negative: Dysuria, Frequency, Incontinence, Hematuria, Retention , Other Musculoskeletal: negative: Neck Pain, Shoulder Pain, Arm Pain, Back Pain, Hand Pain, Leg Pain, Foot Pain, Other - Medications/Allergies Allergies/Adverse Reactions: Allergies Allergy/AdvReac Type Severity Reaction Status Date / Time erythromycin base Allergy Verified 09/05/17 02:39 Medications: Current Medications Acetaminophen (Tylenol) 650 mg PO Q4H PRN PRN Reason: Headache/Fever or Pain Last Admin: 09/08/17 09:24 Dose: 650 mg Hydrocodone Bitart/Acetaminophen ([place] 5/325) 1 tab PO Q4H PRN PRN Reason: Moderate Pain (4-6) Last Admin: 09/09/17 20:25 Dose: 1 tab Al Hydroxide/Mg Hydroxide (Maalox) 30 ml PO Q6H PRN PRN Reason: Heartburn or Indigestion Artificial Tears (Tears Naturale) 0 drop EA EYE PRN PRN PRN Reason: Dry Eyes Aspirin (Ecotrin) 81 mg PO DAILY [facility] Last Admin: 09/11/17 09:24 Dose: 81 mg Atorvastatin Calcium (Lipitor) 20 mg PO DAILY [facility] Last Admin: 09/11/17 09:23 Dose: 20 mg Baclofen (Lioresal) 20 mg PO DAILY [facility] Last Admin: 09/11/17 09:22 Dose: 20 mg Digoxin (Lanoxin) 0.125 mg PO DAILY [facility] Last Admin: 09/11/17 09:22 Dose: 0.125 mg Ezetimibe (Zetia) 10 mg PO DAILY [facility] Last Admin: 09/11/17 09:24 Dose: 10 mg Famotidine (Pepcid) 20 mg PO BID [facility] Last Admin: 09/11/17 09:24 Dose: 20 mg Guaifenesin (Robitussin Sf) 200 mg PO Q4H PRN PRN Reason: Cough Hydralazine HCl (Apresoline) 10 mg SLOW IVP Q4H PRN PRN Reason: Systolic BP > 180 Last Admin: 09/07/17 23:44 Dose: 10 mg Hydroxyzine HCl (Atarax) 25 mg PO DAILY [facility] Last Admin: 09/11/17 09:25 Dose: 25 mg Lisinopril (Zestril) 20 mg PO DAILY [facility] Last Admin: 09/11/17 09:23 Dose: 20 mg Loperamide HCl (Imodium) 2 mg PO PRN PRN PRN Reason: Diarrhea/Loose Stools Loratadine (Claritin) 10 mg PO DAILYPRN PRN PRN Reason: Sinus Symptoms Magnesium Hydroxide (Milk Of Magnesium) 30 ml PO DAILYPRN PRN PRN Reason: Constipation Metoprolol Succinate (Toprol Xl) 25 mg PO DAILY [facility] Last Admin: 09/11/17 09:23 Dose: 25 mg Mineral Oil/White Petrolatum (Eucerin Cream) 0 gm TOP BIDPRN PRN PRN Reason: Dry Skin Nitroglycerin (Nitrostat) 0.4 mg SL Q5MIN PRN PRN Reason: Chest Pain Ondansetron HCl (Zofran Odt) 4 mg PO Q6H PRN PRN Reason: Nausea/Vomiting Last Admin: 09/08/17 01:10 Dose: 4 mg Ondansetron HCl (Zofran) 4 mg IVP Q6H PRN PRN Reason: Nausea/Vomiting Phenol (Chloraseptic [place] 180 Ml Bot) 0 ml PO PRN PRN PRN Reason: Sore Throat Phenytoin Sodium (Dilantin Er) 100 mg PO TID [facility] Last Admin: 09/11/17 09:24 Dose: 100 mg Potassium Chloride (K-Dur) 20 meq PO QAM[facility] Last Admin: 09/11/17 09:24 Dose: 20 meq Pregabalin (Lyrica) 75 mg PO DAILY [facility] Last Admin: 09/11/17 09:23 Dose: 75 mg Senna (Senokot) 2 tab PO HSPRN PRN PRN Reason: Constipation Sodium Chloride ([place] Nasal [place] 0.65%) 0 ml EA NARE QIDPRN PRN PRN Reason: Nasal Congestion Sodium Chloride (Flush - Normal Saline) 10 ml IVF Q12HR [facility] Last Admin: 09/11/17 09:25 Dose: 10 ml Sodium Chloride (Flush - Normal Saline) 10 ml IVF PRN PRN PRN Reason: Saline Flush Last Admin: 09/10/17 00:46 Dose: 10 ml Temazepam (Restoril) 30 mg PO HSPRN PRN PRN Reason: Insomnia Last Admin: 09/10/17 20:24 Dose: 30 mg Warfarin Sodium (Coumadin) 5 mg PO 1700 [facility] Last Admin: 09/10/17 16:15 Dose: 5 mg
--- NOTE | 2017-09-11 10:40 | ADD-DIS ---
ADDENDUM Please see my discharge summary dictated on 09/09/2017. We were planning to discharge her on that da y, but we were waiting for her approval from her insurance to go to rehabilitation. The patient stay ed in hospital, the patient had atrial fibrillation with rapid ventricular response during night time . Patient also required digoxin as well as Cardizem bolus and subsequently Cardizem drip was started and her rate was under control. Cardiology was consulted as she had demand ischemia secondary to SV T/AFib with RVR. Cardiology recommended to treat conservatively with medication. Dr. Swift saw t his patient and he started on extra medication Toprol-XL and with that, the patient remained in the r ate control and she also converted to sinus rhythm. Cardizem drip was discontinued. Initially, we were planning to discharge her on warfarin 7.5 mg, but her INR was therapeutic and that is why we reduced back to 5 mg p.o. daily. Today, the patient is seen and examined at bedside today. She is hemodynamically stable and patient is medically stable for discharge as well. There is no plan from Cardiology perspective at this poin t as well. Rest of my discharge summary as per previous. The patient is seen and examined at bedside today. Please see my progress note from today for furthe r details.
[2017-09-11 11:43] VITALS: BP 159/70
== END 2017-09-11 15:28 | DRG 65 ==
LOC: ERS 22:37 → 2SE 09-05 00:20
PROVIDERS: ADMIT Internal Medicine; ATTEND Internal Medicine
DX: I63.412 Cerebral infarction due to embolism of left middle cerebral artery (principal); I47.1 Supraventricular tachycardia; I50.42 Chronic combined systolic (congestive) and diastolic (congestive) heart failure; I24.8 Other forms of acute ischemic heart disease; G81.91 Hemiplegia, unspecified affecting right dominant side; I69.354 Hemiplegia and hemiparesis following cerebral infarction affecting left non-dominant side; I25.10 Atherosclerotic heart disease of native coronary artery without angina pectoris; Z95.1 Presence of aortocoronary bypass graft; Z87.891 Personal history of nicotine dependence; I11.0 Hypertensive heart disease with heart failure; E78.5 Hyperlipidemia, unspecified; I48.91 Unspecified atrial fibrillation; T45.516A Underdosing of anticoagulants, initial encounter; R79.1 Abnormal coagulation profile; Z95.2 Presence of prosthetic heart valve; F01.50 Vascular dementia, unspecified severity, without behavioral disturbance, psychotic disturbance, mood disturbance, and anxiety; G62.9 Polyneuropathy, unspecified; I08.2 Rheumatic disorders of both aortic and tricuspid valves; G40.909 Epilepsy, unspecified, not intractable, without status epilepticus; Z88.1 Allergy status to other antibiotic agents; Z88.8 Allergy status to other drugs, medicaments and biological substances; I69.318 Other symptoms and signs involving cognitive functions following cerebral infarction
CPT/HCPCS: 36415; 70551; 80048; 80053; 80162; 80185; 83090; 83735; 84443; 84484; 85025; 85610; 86780; 93005; 93010; 93306; 93880; 99285; A4216; G8978-GP-CM; G8979-GP-CK; G8987-GO-CL; G8988-GO-CI; G8996-GN-CJ; G8997-GN-CI; J0360; J1160; J1650; J2060; J3486; J7050; Q0162; Q2009

== ENCOUNTER 2017-10-18 17:00 | Emergency (ER) | payer OTHER ==
[2017-10-18 19:41] LABS: #Basophils 0.1 thou/uL (0.0-0.2); #Eosinphils 0.2 thou/uL (0.0-0.7); #Lymphocytes 2.8 thou/uL (1.20-3.40); #Monocytes 0.6 thou/uL (0.11-0.59); #Neutrophils 3.7 thou/uL (1.40-6.50); %Basophils 0.9 % (0.0-1.0); %Eosinophils 3.3 % (0.0-10.0); %Lymphocytes 37.6 % (21.0-51.0); %Monocytes 8.7 % (0.0-10.0); %Neutrophils 49.6 % (42.0-75.0); Mean Corpuscular HGB CONC 34.4 g/dL (32.0-36.0); Mean Corpuscular Hemoglobin 30.6 pg (27.0-31.0); Mean Corpuscular Volume 89.1 fl (81.0-99.0); Mean Platelet Volume 6.4 fL (7.4-10.4); Platelet Count 250 thou/uL (130-400); RBC Distribution Width 11.9 % (11.5-14.5); White Blood Cell (WBC) Count 7.4 thou/uL (4.8-10.8)
[2017-10-18 19:48] LABS: INR-International Normal Ratio 3.3; PTT 47.9 SEC (22.9-36.1); Prothrombin Time 35.4 SEC (12.0-14.7)
[2017-10-18 20:08] LABS: ALT (SGPT) 16 U/L (8-55); AST (SGOT) 19 U/L (5-34); Albumin 3.6 g/dL (3.4-4.8); Alkaline Phosphatase 110 U/L (40-150); Anion Gap 12 mmol/L (10-20); BUN (Urea Nitrogen) 6 mg/dL (9.8-20.1); Bilirubin, Total 0.4 mg/dL (0.2-1.2); Calc. Creatinine Clearance 0 mL/min (70-130); Calcium 9.1 mg/dL (7.8-10.44); Carbon Dioxide 23 mmol/L (23-31); Chloride 111 mmol/L (98-107); Estimated GFR-MDRD Greater than 90; Globulin 2.9 g/dL (2.4-3.5); Glucose 86 mg/dL (80-115); Potassium 4.2 mmol/L (3.5-5.1); Protein, Total 6.5 g/dL (6.0-8.3); Sodium 142 mmol/L (136-145)
== END 2017-10-18 21:35 | disposition home or self-care (01) ==
LOC: ERS 17:00
DX: K92.1 Melena (principal); I25.10 Atherosclerotic heart disease of native coronary artery without angina pectoris; J45.909 Unspecified asthma, uncomplicated; E78.5 Hyperlipidemia, unspecified; I11.0 Hypertensive heart disease with heart failure; I50.9 Heart failure, unspecified; Z86.73 Personal history of transient ischemic attack (TIA), and cerebral infarction without residual deficits; Z87.891 Personal history of nicotine dependence; Z77.22 Contact with and (suspected) exposure to environmental tobacco smoke (acute) (chronic); Z79.899 Other long term (current) drug therapy; Z79.01 Long term (current) use of anticoagulants
CPT/HCPCS: 36415; 80053; 85025; 85610; 85730; 86850; 86900; 86901; 93005